=== PATIENT | male | born 1975 | race Caucasian/White ===

== ENCOUNTER 2016-09-13 17:26 | Observation (INO) | payer SELFPAY ==
[~2016-09-13] VITALS: Ht 182.9 cm; Wt 108.4 kg
[~2016-09-13 17:26] MED LIST: BENZ100 PO; PRED20 PO
[2016-09-13 17:29] VITALS: BP 120/90; PULSE 108; RESP 16; TEMP 99.2; O2SAT 97
[2016-09-13] MEDS ORDERED: SODIUM CHLOR 0.9% 1000 ML INJ 1,000 ML IV ONE (20:15)
[2016-09-13] MEDS ORDERED: ONDANSETRON HCL 4 MG/2 ML VIAL IV PUSH ONE (20:15)
[2016-09-13] MEDS ORDERED: MORPHINE SULFATE 4 MG/ML INJ IV PUSH ONE (20:15)
[2016-09-13] MEDS ORDERED: SODIUM CHLORIDE 0.9% FLUSH 5 ML FLUSH IVF PRN ×2 (20:15→22:00)
--- NOTE | 2016-09-13 20:16 | PD ---
HPI Chief Complaint: Musculoskeletal Complaint Time Seen by Provider: 20:12 Travel History International Travel<30 days: No Contact w/Intl Traveler<30days: No Traveled to known affect area: No History of Present Illness HPI Patient comes in complaining of headache is occipital lobe ongoing for approximately 3 days. Patient states he woke with a headache. He states progressively has got worse and is radiating into his neck. There is pain is throbbing like in nature is worse with turning his head to the right. Patient has been using Tylenol with minimal to no relief of his symptoms. Denies any seizures, nausea, vomiting, headache history, chest pain, shortness breath, numbness or tingling anywhere, loss or change in bladder, or known sick contacts. Patient states he is primary concern is his sister from an aneurysm at age 41. [facility] Past Medical History Musculoskeletal: Yes (Spinal stenosis, dropfoot) Tetanus Vaccination: > 5 Years Influenza Vaccination: No Social History Alcohol Use: Yes (Occ.) Tobacco Use: Yes (1 PPD) Substance Use: No Allergies-Medications (Allergen,Severity, Reaction): Coded Allergies: No Known Allergies (Unverified , 09/13/16) Reported Meds & Prescriptions Reported Meds & Active Scripts Active No Active Prescriptions or Reported Medications Review of Systems Except as stated in HPI: all other systems reviewed are Neg Physical Exam Narrative GENERAL: Well-developed, well nourished, in no acute distress, and non-ill appearing. SKIN: Warm and dry. HEAD: Atraumatic. Normocephalic. EYES: Pupils equal and round. EOMI. No scleral icterus. No injection or drainage. ENT: No nasal bleeding or discharge. Mucous membranes pink and moist. NECK: Trachea midline. No cervical lymphadenopathy. Supple. No nuclear rigidity. No tenderness or crepitus to midline of the cervical Spine. Patient Reports Tenderness to the Paravertebral Spinal Muscles on the Right. CARDIOVASCULAR: Regular rate and rhythm. No murmur appreciated. RESPIRATORY: No accessory muscle use. No respiratory distress. Clear to auscultation. Breath sounds equal bilaterally. MUSCULOSKELETAL: No obvious deformities. No clubbing. No cyanosis. No edema. Full range of motion. NEUROLOGICAL: Awake and alert. No obvious cranial nerve deficits. Motor grossly within normal limits. Normal speech. PSYCHIATRIC: Appropriate mood and affect; insight and judgment normal. Data Data Last Documented VS Vital Signs Date Time Temp Pulse Resp B/P Pulse Ox O2 Delivery O2 Flow Rate FiO2 09/13/16 21:16 65 18 113/68 100 Room Air 09/13/16 17:29 99.2 Orders Complete Blood Count With Diff (09/13/16 20:09) Basic Metabolic Panel (Bmp) (09/13/16 20:09) Prothrombin Time / Inr (Pt) (09/13/16 20:09) Act Partial Throm Time (Ptt) (09/13/16 20:09) Ct Brain W/O Iv Contrast(Rout) (09/13/16 20:09) Ecg Monitoring (09/13/16 20:09) Iv Access Insert/Monitor (09/13/16 20:09) Oximetry (09/13/16 20:09) Sodium Chloride 0.9% Flush (Ns Flush) (09/13/16 20:15) Cta Brain W Iv Contrast W 3d (09/13/16 ) Morphine Inj (Morphine Inj) (09/13/16 20:15) Ondansetron Inj (Zofran Inj) (09/13/16 20:15) Sodium Chlor 0.9% 1000 Ml Inj (Ns 1000 M (09/13/16 20:15) Iohexol 350 Inj (Omnipaque 350 Inj) (09/13/16 20:55) Labs Laboratory Tests Test 09/13/16 20:15 White Blood Count 9.1 TH/MM3 Red Blood Count 4.95 MIL/MM3 Hemoglobin 15.9 GM/DL Hematocrit 45.9 % Mean Corpuscular Volume 92.8 FL Mean Corpuscular Hemoglobin 32.2 PG Mean Corpuscular Hemoglobin 34.7 % Concent Red Cell Distribution Width 12.0 % Platelet Count 219 TH/MM3 Mean Platelet Volume 8.6 FL Neutrophils (%) (Auto) 62.8 % Lymphocytes (%) (Auto) 29.3 % Monocytes (%) (Auto) 5.1 % Eosinophils (%) (Auto) 2.0 % Basophils (%) (Auto) 0.8 % Neutrophils # (Auto) 5.6 TH/MM3 Lymphocytes # (Auto) 2.7 TH/MM3 Monocytes # (Auto) 0.5 TH/MM3 Eosinophils # (Auto) 0.2 TH/MM3 Basophils # (Auto) 0.1 TH/MM3 CBC Comment DIFF FINAL Differential Comment Prothrombin Time 10.9 SEC Prothromb Time International 1.0 RATIO Ratio Activated Partial 28.0 SEC Thromboplast Time Sodium Level 140 MEQ/L Potassium Level 4.3 MEQ/L Chloride Level 107 MEQ/L Carbon Dioxide Level 26.6 MEQ/L Anion Gap 6 MEQ/L Blood Urea Nitrogen 13 MG/DL Creatinine 0.93 MG/DL Estimat Glomerular Filtration 90 ML/MIN Rate Random Glucose 94 MG/DL Calcium Level 8.3 MG/DL MDM Medical Decision Making Medical Screen Exam Complete: Yes Emergency Medical Condition: Yes Differential Diagnosis Aneurysm, meningitis, torticollis, headache, other Narrative Course Patient was seen and examined. Initial laboratory and radiological studies were ordered. Patient was signed out to Dr. Balbuena. Please see his documentation for final diagnosis and disposition. Scripts No Active Prescriptions or Reported Meds Michael Raya Sep 13, 2016 20:16
--- NOTE | 2016-09-13 20:27 | PD ---
Data Data Last Documented VS Vital Signs Date Time Temp Pulse Resp B/P Pulse Ox O2 Delivery O2 Flow Rate FiO2 09/13/16 22:29 78 18 117/76 100 Room Air 09/13/16 17:29 99.2 Orders Complete Blood Count With Diff (09/13/16 20:09) Basic Metabolic Panel (Bmp) (09/13/16 20:09) Prothrombin Time / Inr (Pt) (09/13/16 20:09) Act Partial Throm Time (Ptt) (09/13/16 20:09) Ct Brain W/O Iv Contrast(Rout) (09/13/16 20:09) Ecg Monitoring (09/13/16 20:09) Iv Access Insert/Monitor (09/13/16 20:09) Oximetry (09/13/16 20:09) Sodium Chloride 0.9% Flush (Ns Flush) (09/13/16 20:15) Cta Brain W Iv Contrast W 3d (09/13/16 ) Morphine Inj (Morphine Inj) (09/13/16 20:15) Ondansetron Inj (Zofran Inj) (09/13/16 20:15) Sodium Chlor 0.9% 1000 Ml Inj (Ns 1000 M (09/13/16 20:15) Iohexol 350 Inj (Omnipaque 350 Inj) (09/13/16 20:55) Csf Cell Count + Differential (09/13/16 22:00) Glucose, Csf (09/13/16 22:00) Total Protein, Csf (09/13/16 22:00) Csf Culture And Gram Stain (09/13/16 22:00) Sodium Chloride 0.9% Flush (Ns Flush) (09/13/16 22:00) Csf Cell Count + Differential (09/13/16 22:01) Admit Order (Ed Use Only) (09/13/16 ) Labs Laboratory Tests Test 09/13/16 09/13/16 20:15 21:58 White Blood Count 9.1 TH/MM3 Red Blood Count 4.95 MIL/MM3 Hemoglobin 15.9 GM/DL Hematocrit 45.9 % Mean Corpuscular Volume 92.8 FL Mean Corpuscular Hemoglobin 32.2 PG Mean Corpuscular Hemoglobin 34.7 % Concent Red Cell Distribution Width 12.0 % Platelet Count 219 TH/MM3 Mean Platelet Volume 8.6 FL Neutrophils (%) (Auto) 62.8 % Lymphocytes (%) (Auto) 29.3 % Monocytes (%) (Auto) 5.1 % Eosinophils (%) (Auto) 2.0 % Basophils (%) (Auto) 0.8 % Neutrophils # (Auto) 5.6 TH/MM3 Lymphocytes # (Auto) 2.7 TH/MM3 Monocytes # (Auto) 0.5 TH/MM3 Eosinophils # (Auto) 0.2 TH/MM3 Basophils # (Auto) 0.1 TH/MM3 CBC Comment DIFF FINAL Differential Comment Prothrombin Time 10.9 SEC Prothromb Time International 1.0 RATIO Ratio Activated Partial 28.0 SEC Thromboplast Time Sodium Level 140 MEQ/L Potassium Level 4.3 MEQ/L Chloride Level 107 MEQ/L Carbon Dioxide Level 26.6 MEQ/L Anion Gap 6 MEQ/L Blood Urea Nitrogen 13 MG/DL Creatinine 0.93 MG/DL Estimat Glomerular Filtration 90 ML/MIN Rate Random Glucose 94 MG/DL Calcium Level 8.3 MG/DL CSF Volume (Tube 1) 1.0 ML CSF Supernatant Color (tube 1) CLEAR CSF Gross Blood (Tube 1) 3+ CSF WBC (Tube 1) 0 /MM3 CSF RBC (Tube 1) 64588 /MM3 CSF Volume (Tube 2) 1.0 ML CSF Supernatant Color (tube 2) CLEAR CSF Gross Blood (Tube 2) 3+ CSF Volume (Tube 3) 1.0 ML CSF Supernatant Color (tube 3) CLEAR CSF Gross Blood (Tube 3) 3+ CSF Volume (Tube 4) 1.0 ML CSF Supernatant Color (tube 4) CLEAR CSF Gross Blood (Tube 4) 0 CSF WBC (Tube 4) 0 /MM3 CSF RBC (Tube 4) 27700 /MM3 CSF Neutrophils 0 % CSF Lymphocytes 0 % [facility] Supervised Visit with GEE: Yes Narrative Course Patient care assumed from Karthik Alfred [facility] at 2100. Briefly this is a 41-year-old male with presents emergency Department with 3 days with headache. Patient apparently awoke with a headache. Patient is concerned because his sister of a ruptured aneurysm in her head at 39 years of age. Patient denies any thunderclap presentation. He states his headache is mostly occipital. Denies any visual changes. Neuro exam on this patient is: Cranial nerves II through XII are grossly intact and nonfocal, 5 out of 5 strength in all 4 extremities, cerebellar testing is negative, sensation is intact in all 4 extremities. Funduscopy is negative. Discussed the length of the patient CT head and CT angiogram head are negative, still not adequate to exclude possibility for subarachnoid hemorrhage and somebody with his family history. After discussing the risks benefits competitions and alternatives of lumbar puncture he agrees to the test. This test reveals grossly bloody CSF in a fairly atraumatic tap is negative for xanthochromia but the RBCs in the CSF sample increased from tube 1 to tube 4.. Patient was discussed with Dr. Kc and patient will be admitted to the SICU at the [facility] for consideration of angiography in the morning. Patient's headache was completely relieved with morphine. He is stable for transportation. Procedures Procedure Narrative LUMBAR PUNCTURE: The patient was placed in the seated position. The lumbar area of the back was prepped with Betadine and sterilely draped. The L3 -- L4 interspace was infiltrated with 1% lidocaine plain. Number 20 gauge LP needle was placed in the interspace on the first attempt.. Opening pressure deferred. Number 4 milliliters of blood-tinged CSF were obtained. Patient tolerated procedure well. Diagnosis Primary Impression: High cerebrospinal fluid red blood cell count Additional Impression: Headache Qualified Code: R51 - Nonintractable headache, unspecified chronicity pattern , unspecified headache type Admitting Information Admitting Physician Requests: Admit Scripts No Active Prescriptions or Reported Meds Condition: Stable Eduar Balbuena MD Sep 13, 2016 20:27
[2016-09-13 20:28] LABS: AUTOMATED NEUTROPHIL # 5.6 TH/MM3 (1.8-7.7); BASOPHIL # 0.1 TH/MM3 (0-0.2); BASOPHIL % 0.8 % (0.0-2.0); EOSINOPHIL # 0.2 TH/MM3 (0-0.4); HEMATOCRIT 45.9 % (39.0-51.0); HEMO FLAGS DIFF FINAL; LYMPH % 29.3 % (9.0-44.0); LYMPHOCYTE # 2.7 TH/MM3 (1.0-4.8); MEAN CELL VOLUME 92.8 FL (80.0-100.0); MEAN CORPUSCULAR HEMOGLOBIN 32.2 PG (27.0-34.0); MEAN CORPUSCULAR HGB CONC 34.7 % (32.0-36.0); MONO % 5.1 % (0.0-8.0); NEUT % 62.8 % (16.0-70.0); PLATELET COUNT 219 TH/MM3 (150-450); RED BLOOD COUNT 4.95 MIL/MM3 (4.50-5.90); WHITE BLOOD COUNT 9.1 TH/MM3 (4.0-11.0)
[2016-09-13 20:33] VITALS: BP 108/71; PULSE 77; RESP 20; O2SAT 97
[2016-09-13 20:38] LABS: POTASSIUM 4.3 MEQ/L (3.5-5.1)
[2016-09-13 20:41] LABS: BICARBONATE 26.6 MEQ/L (21.0-32.0)
[2016-09-13 20:44] LABS: PROTHROMBIN TIME - PATIENT 10.9 SEC (9.8-11.6)
[2016-09-13] MEDS ORDERED: IOHEXOL 350 MG/ML 10 ML VIAL (for RAD DIAG) IV ONE (20:55)
--- NOTE | 2016-09-13 21:11 | RADHPO ---
EXAM DATE/TIME: 09/13/2016 20:50 [facility] COMPARISON: No previous studies available for comparison. INDICATIONS : Cephalgia for three days. RADIATION DOSE: 60.17 CTDIvol (mGy) MEDICAL HISTORY : None SURGICAL HISTORY : None. ENCOUNTER: Initial ACUITY: 3 days PAIN SCALE: 6/10 LOCATION: Bilateral cranial TECHNIQUE: Multiple contiguous axial images were obtained of the head. Using automated exposure control and adj ustment of the mA and/or kV according to patient size, radiation dose was kept as low as reasonably a chievable to obtain optimal diagnostic quality images. FINDINGS: CEREBRUM: The ventricles are normal for age. No evidence of midline shift, mass lesion, hemorrhage or acute in farction. No extra-axial fluid collections are seen. POSTERIOR FOSSA: The cerebellum and brainstem are intact. The 4th ventricle is midline. The cerebellopontine angle i s unremarkable. EXTRACRANIAL: The visualized portion of the orbits is intact. SKULL: The calvaria is intact. No evidence of skull fracture. CONCLUSION: Normal examination. Ken Levy MD on September 13, 2016 at 21:09 Board Certified Radiologist. This report was verified electronically.
[2016-09-13 21:16] VITALS: BP 113/68; PULSE 65; RESP 18; O2SAT 100
--- NOTE | 2016-09-13 21:34 | RADHPO ---
EXAM DATE/TIME: 09/13/2016 20:50 This report includes an Addendum and supersedes previous reports for this exam. [facility] COMPARISON: No previous studies available for comparison. INDICATIONS : Cephalgia for three days. IV CONTRAST: 75 cc Omnipaque 350 (iohexol) IV RADIATION DOSE: 42.62 CTDIvol (mGy) MEDICAL HISTORY : None SURGICAL HISTORY : None. ENCOUNTER: Initial ACUITY: 1 day PAIN SCALE: 6/10 LOCATION: cranial TECHNIQUE: Volumetric scanning was performed using a multi-row detector CT scanner. The data was post processed with a variety of visualization algorithms including full volume maximum intensity projection, multi -planar sliding thin slab reformation, curved planar reformation, and surface rendering techniques. Using automated exposure control and adjustment of the mA and/or kV according to patient size, radiat ion dose was kept as low as reasonably achievable to obtain optimal diagnostic quality images. FINDINGS: There is excellent visualization of the major intracranial arteries out to the second-order branch ve ssels. There is no evidence for aneurysm, vessel truncation or stenosis, and no evidence for vascula r malformation. CONCLUSION: Normal examination. Ken Levy MD on September 13, 2016 at 21:28 Board Certified Radiologist. This report was verified electronically. ADDENDUM: The case was reviewed for Dr. Kc. The examination demonstrates a 4 mm aneurysm projecting laterally off the supraclinoid carotid on the right likely arising from the posterior communicating on the rig ht. This is obscured by the skull base and is quite difficult to visualize on the source data. Conven tional cerebral angiogram is pending. Bryan De La Torre MD on September 14, 2016 at 7:59 Board Certified Radiologist. This report was verified electronically.
[2016-09-13 22:29] VITALS: BP 117/76; PULSE 78; RESP 18; O2SAT 100
[2016-09-13 22:47] LABS: GROSS BLOOD TUBE #1 3+ (0); GROSS BLOOD TUBE #2 3+ (0); GROSS BLOOD TUBE #3 3+ (0); GROSS BLOOD TUBE #4 3+ (0); SUPERNATE COLOR TUBE #1 CLEAR (CLEAR); SUPERNATE COLOR TUBE #2 CLEAR (CLEAR); SUPERNATE COLOR TUBE #3 CLEAR (CLEAR); SUPERNATE COLOR TUBE #4 CLEAR (CLEAR); WBC TUBE #4 0 /MM3 (0-10)
[2016-09-13 22:48] LABS: CSF LYMPHOCYTES 0 %; CSF NEUTROPHILS 0 %
[2016-09-13 22:49] LABS: CSF LYMPHOCYTES 0 %; CSF NEUTROPHILS 0 %; GROSS BLOOD TUBE #1 3+ (0); GROSS BLOOD TUBE #2 3+ (0); GROSS BLOOD TUBE #3 3+ (0); GROSS BLOOD TUBE #4 0 (0); SUPERNATE COLOR TUBE #1 CLEAR (CLEAR); SUPERNATE COLOR TUBE #2 CLEAR (CLEAR); SUPERNATE COLOR TUBE #3 CLEAR (CLEAR); SUPERNATE COLOR TUBE #4 CLEAR (CLEAR); WBC TUBE #1 0 /MM3 (0-10)
[2016-09-14] VITALS (14 sets, daily range): BP systolic 108–135; BP diastolic 65–88; PULSE 60–87; RESP 11–23; TEMP 97.5–98.9; O2SAT 92–99
--- NOTE | 2016-09-14 00:11 | HHI.HP ---
HPI Primary Care Physician No Primary Care Physician Past Family Social History Allergies: Coded Allergies: No Known Allergies (Unverified , 09/13/16) Physical Exam Vital Signs Vital Signs Date Time Temp Pulse Resp B/P Pulse Ox O2 Delivery O2 Flow Rate FiO2 09/13/16 22:29 78 18 117/76 100 Room Air 09/13/16 21:16 65 18 113/68 100 Room Air 09/13/16 20:33 77 20 108/71 97 09/13/16 20:33 97 09/13/16 17:29 99.2 108 16 120/90 97 Laboratory Laboratory Tests Test 09/13/16 09/13/16 20:15 21:58 White Blood Count 9.1 Red Blood Count 4.95 Hemoglobin 15.9 Hematocrit 45.9 Mean Corpuscular Volume 92.8 Mean Corpuscular Hemoglobin 32.2 Mean Corpuscular Hemoglobin 34.7 Concent Red Cell Distribution Width 12.0 Platelet Count 219 Mean Platelet Volume 8.6 Neutrophils (%) (Auto) 62.8 Lymphocytes (%) (Auto) 29.3 Monocytes (%) (Auto) 5.1 Eosinophils (%) (Auto) 2.0 Basophils (%) (Auto) 0.8 Neutrophils # (Auto) 5.6 Lymphocytes # (Auto) 2.7 Monocytes # (Auto) 0.5 Eosinophils # (Auto) 0.2 Basophils # (Auto) 0.1 CBC Comment DIFF FINAL Differential Comment Prothrombin Time 10.9 Prothromb Time International 1.0 Ratio Activated Partial 28.0 Thromboplast Time Sodium Level 140 Potassium Level 4.3 Chloride Level 107 Carbon Dioxide Level 26.6 Anion Gap 6 Blood Urea Nitrogen 13 Creatinine 0.93 Estimat Glomerular Filtration 90 Rate Random Glucose 94 Calcium Level 8.3 CSF Volume (Tube 1) 1.0 CSF Supernatant Color (tube 1) CLEAR CSF Gross Blood (Tube 1) 3+ CSF WBC (Tube 1) 0 CSF RBC (Tube 1) 75305 CSF Volume (Tube 2) 1.0 CSF Supernatant Color (tube 2) CLEAR CSF Gross Blood (Tube 2) 3+ CSF Volume (Tube 3) 1.0 CSF Supernatant Color (tube 3) CLEAR CSF Gross Blood (Tube 3) 3+ CSF Volume (Tube 4) 1.0 CSF Supernatant Color (tube 4) CLEAR CSF Gross Blood (Tube 4) 0 CSF WBC (Tube 4) 0 CSF RBC (Tube 4) 08654 CSF Neutrophils 0 CSF Lymphocytes 0 Date/Time Procedure Status Source Growth 09/13/16 21:58 Gram Stain - Final Resulted Cerebral Spinal Fluid Lumbar Puncture 09/13/16 21:58 CSF Culture Resulted Cerebral Spinal Fluid Lumbar Puncture Pending Result Diagram: 09/13/16201409/13/162014 Imaging Last Impressions Head CT 09/13/162008 Signed Impressions: Service Date/Time: Tuesday, September 13, 2016 20:50 - CONCLUSION: Normal examination. Ken Levy MD Head CTA 09/13/16 0000 Signed Impressions: Service Date/Time: Tuesday, September 13, 2016 20:50 - CONCLUSION: Normal examination. Ken Levy MD Assessment and Plan Assessment and Plan Headache Probable traumatic LP Plan; D/w pt per ED. Family history of aneurysm. Patient wants angiogram Mark Kc MD Sep 14, 2016 00:11
[2016-09-14] MEDS ORDERED: ONDANSETRON HCL 4 MG/2 ML VIAL IV PRN (00:15)
[2016-09-14] MEDS ORDERED: HYDROmorphone HCL PF 1 MG/ML VIAL IV PRN ×2 (00:15)
[2016-09-14] MEDS ORDERED: PROMETHAZINE INJ 25 MG/ML VIAL IM PRN (00:15)
[2016-09-14] MEDS ORDERED: ACETAMINOPHEN/HYDROcodone 325 MG/5 MG TAB PO PRN (00:15)
[2016-09-14] MEDS ORDERED: NALOXONE HCL 0.4 MG/ML AMP IV PRN (00:15)
[2016-09-14] MEDS: ACETAMINOPHEN/HYDROcodone 325 MG/10 MG TAB PO PRN ×4 (02:18→21:19)
[2016-09-14] MEDS: niMODipine 30 MG CAP PO SCH ×5 (04:30→21:19)
[2016-09-14] MEDS: DOCUSATE SODIUM 100 MG CAP PO SCH ×2 (08:11→21:20)
--- NOTE | 2016-09-14 08:54 | PD.RAD ---
Radiology Note 41 Y/O with 4 day history of headache and family history of aneurism. Pt underwent CTA for assessment but initial report was negative for aneurism. Due to strong family history and presentation the study was reevaluated. Exam demonstrates a 4mm aneurism likely arising from the right PCOM which was partially obscured by the skull base. The risk, benefits and potential complications of cerebral angiography and aneurism coiling were discussed. The risk included but were not limited to bleeding, infection, stroke resulting in permanent disability and rarely . The patient voiced his understanding of the risk and stated he was well aware as his sister passed from a ruptured aneurism at 39. Bryan De La Torre MD Sep 14, 2016 08:53
[2016-09-14] MEDS ORDERED: PANTOPRAZOLE SOD 40 MG DELAYED RELEASE TAB PO SCH (09:00)
--- NOTE | 2016-09-14 10:59 | HHI.HP ---
[facility] Service Neurosurgery Primary Care Physician No Primary Care Physician Chief Complaint: Headache 3-4 days History of Present Illness 41-year-old male states that he awoke 4 days ago in the morning with a severe headache accompanied by nausea without emesis. The headache has persisted up to the present time. He has no history of previous significant headaches. No fevers or chills. No diplopia, blurred vision, tinnitus numbness in the extremities. Patient has exhibited some mild memory loss according to his family. Patient does have a history of a sister at age 39 years due to a cerebral aneurysm. Review of Systems General: No weight gain or loss or change in appetite. No recent fever, chills or sweats. No generalized fatigue. HEENT: No sore throat. No sinus congestion or drainage. No chronic headaches. Recent headache as noted above. No hearing loss or tinnitus, blurred vision, diplopia, facial pain, weakness or numbness, or difficulty swallowing. Cardiovascular: No chest pain, palpations Pulmonary: No shortness of breath or productive cough. Gastrointestinal: No abdominal discomfort,, diarrhea, constipation. No gastroesophageal reflux. No problems with jaundice, ulcers. Recent nausea. : No blood in the urine. No dysuria. No urinary urgency or incontinence. Integumentary: No skin lesions or rash. Neurologic: Mild recent memory loss. No speech difficulty, difficulty with concentration, confusion. No difficulty with ambulation. No weakness or numbness in the extremities. Psychiatric: No anxiety or depression. Endocrine: No excessive thirst or urination, heat or cold tolerance. Hematologic: No significant bleeding or clotting disorder. No chronic anemia. Musculoskeletal: No complaint of significant joint pain, arthritis, muscular pain. Past Family Social History Allergies: Coded Allergies: No Known Allergies (Unverified , 09/13/16) Past Medical History Denies cardiac, pulmonary, gastrointestinal disease, diabetes, hypertension. History of spinal stenosis. Chronic right drop foot for approximately 3-4 years. History of hydrocele Past Surgical History Right shoulder surgery 1996 Reported Medications Reported Meds & Active Scripts Active No Active Prescriptions or Reported Medications Family History Hypertension and diabetes in multiple family members including his mother and grandmother. Sisiter . at age 41 due to ruptured intracranial aneurysm. Social History Has smoked 1 pack cigarettes a day for approximately 23 years. No alcohol or illicit drug use Physical Exam Vital Signs Vital Signs Date Time Temp Pulse Resp B/P Pulse Ox O2 Delivery O2 Flow Rate FiO2 09/14/16 06:00 62 09/14/16 04:00 60 09/14/16 04:00 60 11 119/72 96 09/14/16 03:00 66 17 118/76 92 09/14/16 02:00 96 Room Air 09/14/16 02:00 74 09/14/16 02:00 97.9 74 14 133/88 96 09/14/16 01:04 78 18 118/76 99 09/13/16 22:29 78 18 117/76 100 Room Air 09/13/16 21:16 65 18 113/68 100 Room Air 09/13/16 20:33 77 20 108/71 97 09/13/16 20:33 97 09/13/16 17:29 99.2 108 16 120/90 97 Physical Exam GENERAL: This is a well-nourished, well-developed patient, in no apparent distress. SKIN: No rashes, ecchymoses or lesions. HEAD: Normocephalic, nontender EYES: Sclerae are clear and nonicteric. No periorbital edema or ecchymosis ENT: Oropharynx clear. No periorbital edema or ecchymosis. Intact dentition NECK: Supple, nontender, no meningeal signs. CARDIOVASCULAR: Regular rate and rhythm without murmurs, gallops, or rubs. RESPIRATORY: Clear to auscultation. Breath sounds equal bilaterally. No wheezes , rales, or rhonchi. GASTROINTESTINAL: Abdomen soft, non-tender, nondistended. No hepato-splenomegaly , or palpable masses. No guarding. Normal bowel sounds MUSCULOSKELETAL: Extremities without cyanosis, or edema. No joint tenderness, effusion, or edema noted. No calf tenderness. Posterior tibial pulse 2+ bilateral NEUROLOGICAL: Awake and alert Oriented X 3 Speech is clear Conversant and appropriate Follow simple commands well Answers questions appropriately Reasonable judgment and insight Recent and remote memory are intact No evidence of anxiety or depression Pupils are equal and reactive to accommodation. Extra-ocular movements, visual alcaraz to confrontation, facial sensorimotor, tongue, palate, sternocleidomastoid testing, hearing to finger rub testing, and bilateral shoulder shrug are all intact. Sensation is intact to light touch in all extremities Strength normal major flexion and extension groups all extremities Fernanda's absent bilaterally No ankle clonus Plantar responses absent bilateral Fine motor movements intact upper extremities Laboratory Laboratory Tests Test 09/13/16 09/13/16 20:15 21:58 White Blood Count 9.1 Red Blood Count 4.95 Hemoglobin 15.9 Hematocrit 45.9 Mean Corpuscular Volume 92.8 Mean Corpuscular Hemoglobin 32.2 Mean Corpuscular Hemoglobin 34.7 Concent Red Cell Distribution Width 12.0 Platelet Count 219 Mean Platelet Volume 8.6 Neutrophils (%) (Auto) 62.8 Lymphocytes (%) (Auto) 29.3 Monocytes (%) (Auto) 5.1 Eosinophils (%) (Auto) 2.0 Basophils (%) (Auto) 0.8 Neutrophils # (Auto) 5.6 Lymphocytes # (Auto) 2.7 Monocytes # (Auto) 0.5 Eosinophils # (Auto) 0.2 Basophils # (Auto) 0.1 CBC Comment DIFF FINAL Differential Comment Prothrombin Time 10.9 Prothromb Time International 1.0 Ratio Activated Partial 28.0 Thromboplast Time Sodium Level 140 Potassium Level 4.3 Chloride Level 107 Carbon Dioxide Level 26.6 Anion Gap 6 Blood Urea Nitrogen 13 Creatinine 0.93 Estimat Glomerular Filtration 90 Rate Random Glucose 94 Calcium Level 8.3 CSF Volume (Tube 1) 1.0 CSF Supernatant Color (tube 1) CLEAR CSF Gross Blood (Tube 1) 3+ CSF WBC (Tube 1) 0 CSF RBC (Tube 1) 88178 CSF Volume (Tube 2) 1.0 CSF Supernatant Color (tube 2) CLEAR CSF Gross Blood (Tube 2) 3+ CSF Volume (Tube 3) 1.0 CSF Supernatant Color (tube 3) CLEAR CSF Gross Blood (Tube 3) 3+ CSF Volume (Tube 4) 1.0 CSF Supernatant Color (tube 4) CLEAR CSF Gross Blood (Tube 4) 0 CSF WBC (Tube 4) 0 CSF RBC (Tube 4) 78068 CSF Neutrophils 0 CSF Lymphocytes 0 CSF Glucose 57 CSF Total Protein 58.2 Date/Time Procedure Status Source Growth 09/13/16 21:58 Gram Stain - Final Resulted Cerebral Spinal Fluid Lumbar Puncture 09/13/16 21:58 CSF Culture - Preliminary Resulted Cerebral Spinal Fluid Lumbar Puncture NO GROWTH IN 24 HOURS. Result Diagram: 09/13/16201409/13/162014 Imaging 09/13/[address] head [address] CT angiogram. Images reviewed by the undersigned. Agree with findings as noted below: Head CT 09/13/162008 Signed Impressions: Service Date/Time: Tuesday, September 13, 2016 20:50 - CONCLUSION: Normal examination. Ken Levy MD Head CTA 09/13/16 0000 Signed Impressions: MD ADDENDUM: The case was reviewed for Dr. Kc. The examination demonstrates a 4 mm aneurysm projecting laterally off the supraclinoid carotid on the right likely arising from the posterior communicating on the right. This is obscured by the skull base and is quite difficult to visualize on the source data. Conventional cerebral angiogram is pending. Bryan De La Torre MD Assessment and Plan Assessment and Plan Impression: 1. 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 Plan: Findings discussed with interventional radiology as well as with the patient and family. He is going to proceed with conventional cerebral angiogram with possible coiling of the aneurysm. The procedure, risks, possible complications as well as other treatment options and then fully discussed. He appears understand and agree with the above plan Nimodipine Non-chemical DVT prophylaxis Ulcer prophylaxis [employer] consult Mark Kc MD Sep 14, 2016 10:59
--- NOTE | 2016-09-14 11:45 | PD.CONS ---
[facility] Service Critical Care Medicine Consult Requested By Dr. Kc Reason for Consult Cerebral aneurysm Primary Care Physician No Primary Care Physician History of Present Illness 41 y/o man originally from [place], [place], now living in [place], presents to ED with 4 day history of a constant posterior headache which wanes but never stops. He dies not have headaches usually. His sister of a brain aneurysm at age 39. He denies any focal defects but his sister thinks he has developed memory problems recently. No chest pain or SOB. No hx of hypertension. + smoker. 15,800 rbcs in CSF, no wbcs. 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 Review of Systems Neurologic: COMPLAINS OF: Headache ROS No nausea, vomiting, fevers. Past Family Social History Allergies: Coded Allergies: No Known Allergies (Unverified , 09/13/16) Past Medical History PFSH Past Medical History Musculoskeletal: Yes (Spinal stenosis, dropfoot) Tetanus Vaccination: > 5 Years Influenza Vaccination: No Social History Alcohol Use: Yes (Occ.) Tobacco Use: Yes (1 PPD) Substance Use: No Allergies-Medications Allergies-Medications (Allergen,Severity, Reaction): Coded Allergies: No Known Allergies (Unverified , 09/13/16) Reported Meds & Prescriptions Reported Meds & Active Scripts Active No Active Prescriptions or Reported Medications Physical Exam Vital Signs Vital Signs Date Time Temp Pulse Resp B/P Pulse Ox O2 Delivery O2 Flow Rate FiO2 09/14/16 08:00 97.9 76 23 119/69 98 09/14/16 07:00 98 Room Air 09/14/16 06:00 62 09/14/16 04:00 60 09/14/16 04:00 60 11 119/72 96 09/14/16 03:00 66 17 118/76 92 09/14/16 02:00 96 Room Air 09/14/16 02:00 74 09/14/16 02:00 97.9 74 14 133/88 96 09/14/16 01:04 78 18 118/76 99 09/13/16 22:29 78 18 117/76 100 Room Air 09/13/16 21:16 65 18 113/68 100 Room Air 09/13/16 20:33 77 20 108/71 97 09/13/16 20:33 97 09/13/16 17:29 99.2 108 16 120/90 97 Physical Exam P 79, BP 111/68, R 14 non-labored, afeb, sats 100% Gen: Alert, conversant, calm. Head: Atraumatic. Normal. Neck: Suple, airway widely patent. Lungs: Clear, no wheezes or crackles. Heart: NL S1S2, no m,r. No JVD. Abdomen: Soft, nondistended, no guarding. Extremities; Warm, well perfused. Neuro: O X 3, appropriate. Pupil response, EOMs, shoulder shrug, tongue protrusion, smile, grimace intact and symmetrical. Speech clear. Moves 4 limbs to command with grossly normal strength. Laboratory Laboratory Tests Test 09/13/16 09/13/16 20:15 21:58 White Blood Count 9.1 Red Blood Count 4.95 Hemoglobin 15.9 Hematocrit 45.9 Mean Corpuscular Volume 92.8 Mean Corpuscular Hemoglobin 32.2 Mean Corpuscular Hemoglobin 34.7 Concent Red Cell Distribution Width 12.0 Platelet Count 219 Mean Platelet Volume 8.6 Neutrophils (%) (Auto) 62.8 Lymphocytes (%) (Auto) 29.3 Monocytes (%) (Auto) 5.1 Eosinophils (%) (Auto) 2.0 Basophils (%) (Auto) 0.8 Neutrophils # (Auto) 5.6 Lymphocytes # (Auto) 2.7 Monocytes # (Auto) 0.5 Eosinophils # (Auto) 0.2 Basophils # (Auto) 0.1 CBC Comment DIFF FINAL Differential Comment Prothrombin Time 10.9 Prothromb Time International 1.0 Ratio Activated Partial 28.0 Thromboplast Time Sodium Level 140 Potassium Level 4.3 Chloride Level 107 Carbon Dioxide Level 26.6 Anion Gap 6 Blood Urea Nitrogen 13 Creatinine 0.93 Estimat Glomerular Filtration 90 Rate Random Glucose 94 Calcium Level 8.3 CSF Volume (Tube 1) 1.0 CSF Supernatant Color (tube 1) CLEAR CSF Gross Blood (Tube 1) 3+ CSF WBC (Tube 1) 0 CSF RBC (Tube 1) 85632 CSF Volume (Tube 2) 1.0 CSF Supernatant Color (tube 2) CLEAR CSF Gross Blood (Tube 2) 3+ CSF Volume (Tube 3) 1.0 CSF Supernatant Color (tube 3) CLEAR CSF Gross Blood (Tube 3) 3+ CSF Volume (Tube 4) 1.0 CSF Supernatant Color (tube 4) CLEAR CSF Gross Blood (Tube 4) 0 CSF WBC (Tube 4) 0 CSF RBC (Tube 4) 82605 CSF Neutrophils 0 CSF Lymphocytes 0 CSF Glucose 57 CSF Total Protein 58.2 Date/Time Procedure Status Source Growth 09/13/16 21:58 Gram Stain - Final Resulted Cerebral Spinal Fluid Lumbar Puncture 09/13/16 21:58 CSF Culture - Preliminary Resulted Cerebral Spinal Fluid Lumbar Puncture NO GROWTH IN 24 HOURS. Result Diagram: 09/13/16201409/13/162014 Assessment and Plan Problem List: (1) Cerebral aneurysm ICD Code: I67.1 Status: Acute (2) Headache ICD Code: R51 Status: Acute (3) High cerebrospinal fluid red blood cell count ICD Code: R83.8 Status: Acute Assessment and Plan Assessment: 1. PCOM aneurysm (4 mm) 2. Headache. 3. Elevated SCF rbc count (15,800) Plan: 1. Formal cerebral arteriogram has been scheduled. 2. Probable coiling. 3. Meticulous BP control. 4. Protonix. 5. No chemical DVT px. 6.SCDs. Problem Qualifiers (1) Headache: Qualified Code: R51 - Nonintractable headache, unspecified chronicity pattern, unspecified headache type Grabiel Jones MD Sep 14, 2016 11:45
[2016-09-14] MEDS ORDERED: fentaNYL CITRATE 250 MCG/5 ML AMP ONE ×2 (12:13→13:39)
[2016-09-14] MEDS ORDERED: VERAPAMIL HCL 5 MG/2 ML VIAL ONE (12:25)
[2016-09-14] MEDS ORDERED: MIDAZOLAM HCL 5 MG/5 ML VIAL ONE (14:07)
[2016-09-14] MEDS ORDERED: IODIXANOL 320 MG/ML 50 ML VIAL (for RAD SPEC) I-ARTERIAL ONE (14:18)
--- NOTE | 2016-09-14 14:46 | PD.RAD ---
Post Procedure Progress Note Pre Procedure Diagnosis: (1) Cerebral aneurysm Post Procedure Diagnosis: (1) Cerebral aneurysm Procedure Date: Sep 14, 2016 Supervising Radiologist: Bryan De La Torre Estimated blood loss: 5cc Anesthesia: General, Local Plan of Activity Patient to Unit: PACU Patient Condition: Good Additional Comments: Limited right Cerebral angio with aneurysmogram completed. Exam demonstrated 2 small vessels originating from the base of the aneurism which is in the location of the right PCOM. No definite right PCOM is evident on the angio. Decision was made not to coil the aneurism due to inability to exclude the entire aneurism without occluding the vessels emanating from the base. See PACS Report for procedural detail/treatment Bryan De La Torre MD Sep 14, 2016 14:46
--- NOTE | 2016-09-14 16:12 | RADRPT ---
EXAM DATE/TIME: 09/14/2016 13:23 [place] COMPARISON: No previous studies available for comparison. INDICATIONS : Headache. Family history of aneurysms. MEDICAL HISTORY : 1.Headache 2. smoker SURGICAL HISTORY : 1. Rotator cuff ENCOUNTER: Initial ACUITY: 3 days PAIN SCORE: 5/10 LOCATION: head FLUORO TIME: 8.6 minutes ACCESS SITE: Right Femoral artery CONTRAST: 125 cc Visipaque (iodixanol) MEDICATION(S): 1.) 5000 units Heparin IV DEVICE(S): 1.) Right common femoral artery 6 fr Angio-Seal Anesthesia and pain control was provided by the Anesthesia department. PROCEDURE : 1. Ultrasound-guided puncture of the access site. 2. Angiography of the access site prior to closure device. 3. Conscious sedation with continuous EKG and Oximetry monitoring. 4. Percutaneous closure of the access site. 5. Angiography of the right groin 6. Angiography of the right carotid 7. cerebral angiography of the right internal carotid circulation. The risks, benefits and alternatives to the procedure were explained and verbal and written consent w as obtained. The site was prepped in sterile fashion. Full sterile technique was used, including ca p, mask, sterile gloves and gown and a large sterile sheet. Hand hygiene and 2% chlorhexidine and/or betadine/alcohol prep was utilized per protocol for cutaneous antisepsis. The skin and subcutaneous tissues were infiltrated with local anesthetic solution. With ultrasound and fluoroscopic guidance the right common femoral artery was punctured and a vascula r sheath was placed. Angiography of the common femoral artery was performed for evaluation prior to percutaneous closure device placement. A 4 [place] hemostatic sheath was placed. The 0.035 angle Glidewire JB2 catheter were manipulated into the right internal carotid. Limited evaluation of the intracranial circulation was performed. The aaron burgos's right posterior communicating artery aneurysm was easily identified. The 0.035 angle Glidewire JB2 catheter were manipulated into the external carotid circulation. The Gl idewire was exchanged for a Magic torque. A 6 [place] 90 cm sheath was advanced from the right groin a nd parked within the proximal common carotid. A 5 [place] neuron guide catheter was advanced over a 0. 035 angled Glidewire and a 4 [place] glide catheter and parked in the distal right internal carotid ci rculation. Multiple angiographic runs of the patient's aneurysm were performed. A suitable projection was obtained. A Prowler microcatheter was advanced through the guide catheter and the aneurysm was e asily selected. Injection into the aneurysm was performed in multiple projections. These demonstrated 2 small arteries originating from the base of the aneurysm. A 360 spin was performed. This confirmed the small arteries originating from the base of the aneurys m. As such, the decision was made not to proceed with coiling as the entire aneurysm could not be exc luded from the circulation. Hemostasis was obtained with the prescribed medicated closure device. Conscious sedation was perfor med with the prescribed dosages and duration as above. EKG and oximetry remained stable throughout t he procedure. The patient was sent to post anesthesia recovery in stable condition. CONCLUSION: 1. Cerebral angiography confirms the 5 mm aneurysm which likely originates from the base of the P-com m. It should be noted there is no posterior communicating artery on the right. Unfortunately, there a re 2 small vessels which originate from the base of the aneurysm and feed the thalamus. As such, the decision was made not to proceed with endovascular treatment as the entire aneurysm could not be excl uded from circulation. Bryan De La Torre MD on September 14, 2016 at 15:59 Board Certified Radiologist. This report was verified electronically.
[2016-09-14] MEDS ORDERED: NICOTINE 14 MG/24 HR PATCH TD SCH (19:15)
--- NOTE | 2016-09-14 19:21 | HHI.NSPN ---
History Chief Complaint: headache Interval History 41-year-old male with complaint of severe headache for approximately 4 days. Patient awoke with severe headache in the morning approximately 4 days ago. No history of significant previous headaches. Positive nausea without emesis. No fevers or chills. Exam Results Vital Signs Date Time Temp Pulse Resp B/P Pulse Ox O2 Delivery O2 Flow Rate FiO2 09/14/16 18:00 84 09/14/16 16:00 97.5 20 135/67 97 09/14/16 15:40 Nasal Cannula 4 09/14/16 15:04 40 Intake and Output 09/13/16 09/13/16 09/14/16 08:00 16:00 00:00 Intake Total 1000 ml Balance 1000 ml Physical Examination Respirations clear to auscultation Cardiac regular without murmur Remains awake and alert status post angiography. Extraocular movements and facial motor movements symmetric Sensorimotor function intact all extremities Lab, Micro, Other Results Last Impressions Cerebral Arteriogram 09/14/16 1231 Signed Impressions: Service Date/Time: August 13:23 - CONCLUSION: 1. Cerebral angiography confirms the 5 mm aneurysm which likely originates from the base of the P-comm. It should be noted there is no posterior communicating artery on the right. Unfortunately, there are 2 small vessels which originate from the base of the aneurysm and feed the thalamus. As such, the decision was made not to proceed with endovascular treatment as the entire aneurysm could not be excluded from circulation. Bryan De La Torre MD Head CT 09/13/162008 Signed Impressions: Service Date/Time: Tuesday, September 13, 2016 20:50 - CONCLUSION: Normal examination. Ken Levy MD Head CTA 09/13/16 0000 Signed Impressions: Service Date/Time: Tuesday, September 13, 2016 20:50 - CONCLUSION: Normal examination. Ken Levy MD ADDENDUM: The case was reviewed for Dr. Kc. The examination demonstrates a 4 mm aneurysm projecting laterally off the supraclinoid carotid on the right likely arising from the posterior communicating on the right. This is obscured by the skull base and is quite difficult to visualize on the source data. Conventional cerebral angiogram is pending. Bryan De La Torre MD Laboratory Tests Test 09/13/16 09/13/16 09/14/16 20:15 21:58 06:00 White Blood Count 9.1 TH/MM3 Red Blood Count 4.95 MIL/MM3 Hemoglobin 15.9 GM/DL Hematocrit 45.9 % Mean Corpuscular Volume 92.8 FL Mean Corpuscular Hemoglobin 32.2 PG Mean Corpuscular Hemoglobin 34.7 % Concent Red Cell Distribution Width 12.0 % Platelet Count 219 TH/MM3 Mean Platelet Volume 8.6 FL Neutrophils (%) (Auto) 62.8 % Lymphocytes (%) (Auto) 29.3 % Monocytes (%) (Auto) 5.1 % Eosinophils (%) (Auto) 2.0 % Basophils (%) (Auto) 0.8 % Neutrophils # (Auto) 5.6 TH/MM3 Lymphocytes # (Auto) 2.7 TH/MM3 Monocytes # (Auto) 0.5 TH/MM3 Eosinophils # (Auto) 0.2 TH/MM3 Basophils # (Auto) 0.1 TH/MM3 CBC Comment DIFF FINAL Differential Comment Prothrombin Time 10.9 SEC Prothromb Time International 1.0 RATIO Ratio Activated Partial 28.0 SEC Thromboplast Time Sodium Level 140 MEQ/L Potassium Level 4.3 MEQ/L Chloride Level 107 MEQ/L Carbon Dioxide Level 26.6 MEQ/L Anion Gap 6 MEQ/L Blood Urea Nitrogen 13 MG/DL Creatinine 0.93 MG/DL Estimat Glomerular Filtration 90 ML/MIN Rate Random Glucose 94 MG/DL Calcium Level 8.3 MG/DL CSF Volume (Tube 1) 1.0 ML CSF Supernatant Color (tube 1) CLEAR CSF Gross Blood (Tube 1) 3+ CSF WBC (Tube 1) 0 /MM3 CSF RBC (Tube 1) 64823 /MM3 CSF Volume (Tube 2) 1.0 ML CSF Supernatant Color (tube 2) CLEAR CSF Gross Blood (Tube 2) 3+ CSF Volume (Tube 3) 1.0 ML CSF Supernatant Color (tube 3) CLEAR CSF Gross Blood (Tube 3) 3+ CSF Volume (Tube 4) 1.0 ML CSF Supernatant Color (tube 4) CLEAR CSF Gross Blood (Tube 4) 0 CSF WBC (Tube 4) 0 /MM3 CSF RBC (Tube 4) 04889 /MM3 CSF Neutrophils 0 % CSF Lymphocytes 0 % CSF Glucose 57 MG/DL CSF Total Protein 58.2 MG/DL Nasal Screen MRSA (PCR) NEGATIVE Medical Decision Making Impression and Plan Impression: 1. 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 Per radiology report, patient does not have a defined right posterior communicating artery, but does have 2 thalamic perforators coming off of the neck of the aneurysm. Interventional radiology did not feel that coiling was appropriate given the risk of occlusion of the perforators. Patient's initial CT scan negative for subarachnoid hemorrhage and initial CSF equivocal for traumatic tap versus subarachnoid hemorrhage. However the patient 's symptoms and positive family history suggest probable sentinel bleed with increased risks for further subarachnoid hemorrhage. Plan: Findings were discussed at length with the patient following the cerebral angiogram today. Options of observation, craniotomy for aneurysm clipping, possible further attempts at endovascular treatment at a tertiary care center have all been discussed. He would like to be transferred to [facility] for further evaluation and treatment of the aneurysm. He wishes to proceed with treatment of the aneurysm, particularly since he does have a family history of his sister in her late 30s from a cerebral aneurysm. Discussed with Dr. Grupo Tyler at [facility] who has agreed to accept the patient in transfer. Mark Kc MD Sep 14, 2016 19:21
--- NOTE | 2016-09-14 19:24 | HHI.DCPOC ---
Discharge Care Plan Diagnosis: (1) Cerebral aneurysm Additional Problems Cerebral aneurysm Goals to Promote Your Health * To prevent worsening of your condition and complications * To maintain your health at the optimal level Directions to Meet Your Goals Take your medications as prescribed Follow your dietary instruction Follow activity as directed Keep your appointments as scheduled Take your immunizations and boosters as scheduled If your symptoms worsen call your PCP, if no PCP go to Urgent Care Center or Emergency Room Smoking is Dangerous to Your Health. Avoid second hand smoke Call the 24-hour hour crisis hotline for domestic abuse at Mark Kc MD Sep 14, 2016 19:24
--- NOTE | 2016-09-14 19:25 | HHI.DS ---
Discharge Summary Admission Date Sep 13, 2016 at 23:21 Discharge Date: Sep 14, 2016 Admitting Diagnosis R/O SAH. Procedures 09/14/16: Cerebral angiogram Brief History 41-year-old male states that he awoke 4 days ago in the morning with a severe headache accompanied by nausea without emesis. The headache has persisted up to the present time. He has no history of previous significant headaches. No fevers or chills. No diplopia, blurred vision, tinnitus numbness in the extremities. Patient has exhibited some mild memory loss according to his family. Patient does have a history of a sister at age 39 years due to a cerebral aneurysm. CBC/BMP: 09/13/16201409/13/162014 Significant Findings Laboratory Tests Test 09/13/16 09/13/16 20:15 21:58 Calcium Level 8.3 MG/DL (8.5-10.1) CSF Gross Blood (Tube 1) 3+ (0) CSF RBC (Tube 1) 39752 /MM3 (NONE) CSF Gross Blood (Tube 2) 3+ (0) CSF Gross Blood (Tube 3) 3+ (0) CSF Gross Blood (Tube 4) 3+ (0) CSF RBC (Tube 4) 39002 /MM3 (NONE) CSF Total Protein 58.2 MG/DL (15.0-45.0) Imaging Cerebral Arteriogram 09/14/16 1231 Signed Impressions: Service Date/Time: August 13:23 - CONCLUSION: 1. Cerebral angiography confirms the 5 mm aneurysm which likely originates from the base of the P-comm. It should be noted there is no posterior communicating artery on the right. Unfortunately, there are 2 small vessels which originate from the base of the aneurysm and feed the thalamus. As such, the decision was made not to proceed with endovascular treatment as the entire aneurysm could not be excluded from circulation. Bryan De La Torre MD Head CT 09/13/16 2009 Signed Impressions: Service Date/Time: Tuesday, September 13, 2016 20:50 - CONCLUSION: Normal examination. Ken Levy MD Head CTA 09/13/16 0000 Signed Impressions: Service Date/Time: Tuesday, September 13, 2016 20:50 - CONCLUSION: Normal examination. Ken Levy MD ADDENDUM: The case was reviewed for Dr. Kc. The examination demonstrates a 4 mm aneurysm projecting laterally off the supraclinoid carotid on the right likely arising from the posterior communicating on the right. This is obscured by the skull base and is quite difficult to visualize on the source data. Conventional cerebral angiogram is pending. Bryan De La Torre MD PE at Discharge Respirations clear to auscultation Cardiac regular Awake and alert No cranial nerve lower extremity sensorimotor deficit Pt Condition on Discharge: Stable Discharge Disposition: Disch to Another Hospital Discharge Instructions DIET: Follow Instructions for: As Tolerated, No Restrictions ACTIVITIES You can perform: Weight Bearing As Liana Activities to Avoid: Strenuous Activity Mark Kc MD Sep 14, 2016 19:25
[2016-10-11] MEDS ORDERED: IBUP200C PO (16:46)
[2016-10-11] MEDS ORDERED: ZYRT10TA PO (16:46)
== END 2016-09-14 23:02 | disposition short-term general hospital (02) ==
LOC: PHED 17:26 → INTOOBSV 23:21 → PHEDA 23:21 → N03B 09-14 01:32
PROVIDERS: ADMIT Neurological Surgery; ATTEND Neurological Surgery
DX: I67.1 Cerebral aneurysm, nonruptured (principal)
CPT/HCPCS: 01916; 36224; 62270; 70450; 70496; 76937; 80048; 82945; 84157; 85025; 85610; 85730; 87070; 87205; 87641; 89051; 96361; 96374; 96375; 99285; C1760; C1769; C1887; C1894; G0269; G0378; J1170; J1644; J2250; J2270; J2405; J3010; J7030; Q9967

== ENCOUNTER 2016-09-29 09:30 | Emergency (ER) | payer SELFPAY ==
[~2016-09-29] VITALS: Ht 182.9 cm; Wt 90.0 kg
[2016-09-29 09:42] VITALS: BP 110/72; PULSE 83; RESP 18; TEMP 98.8; O2SAT 99
--- NOTE | 2016-09-29 10:11 | PD ---
HPI Chief Complaint: Wound/Suture/Staple Re-Check Time Seen by Provider: 09:50 Travel History International Travel<30 days: No Contact w/Intl Traveler<30days: No Traveled to known affect area: No History of Present Illness HPI 41-year-old male presents the emergency department status post brain surgery for aneurysm at [place] 8 days prior to arrival. Patient here for wound check and suture and staple removal. Patient had a brain aneurysm that required brain surgery. He states overall he is doing very well. He has no complaints. He has no known drug allergies. PFSH Past Medical History Musculoskeletal: Yes (hx right shoulder surgery) Neurologic: Yes Migraines: Yes Past Surgical History Abdominal Surgery: No Cardiac Surgery: No Ear Surgery: No Endocrine Surgery: No Eye Surgery: No Genitourinary Surgery: No Oral Surgery: No Thoracic Surgery: No Social History Alcohol Use: Yes (Occ.) Tobacco Use: No (patient states he quit smoking.) Substance Use: No Allergies-Medications (Allergen,Severity, Reaction): Coded Allergies: No Known Allergies (Unverified , 09/29/16) Reported Meds & Prescriptions Reported Meds & Active Scripts Active No Active Prescriptions or Reported Medications Review of Systems Except as stated in HPI: all other systems reviewed are Neg General / Constitutional: No: Fever Eyes: No: Visual changes HENT: No: Headaches Cardiovascular: No: Chest Pain or Discomfort Respiratory: No: Shortness of Breath Gastrointestinal: No: Abdominal Pain Genitourinary: No: Dysuria Musculoskeletal: No: Pain Skin: No Rash Neurologic: No: Weakness Psychiatric: No: Depression Endocrine: No: Polydipsia Hematologic/Lymphatic: No: Easy Bruising Physical Exam Narrative GENERAL: Patient appears in no acute distress. SKIN: Warm and dry. Normal color. Normal turgor. Patient has a 25 cm incision from just ahead of the right year extending up to the apex of the anterior parietal scalp. It appears well-healed without signs of dehiscence or cellulitis. There are 37 tanya present. Patient has a secondary incision in the right upper posterior parietal region with 2 sutures present. This appears well-healed as well. HEAD: Atraumatic. Normocephalic. EYES: Pupils equal and round. No scleral icterus. No injection or drainage. ENT: No nasal bleeding or discharge. Mucous membranes pink and moist. Pharynx is normal. NECK: Trachea midline. Supple nontender. CARDIOVASCULAR: Regular rate and rhythm. RESPIRATORY: No accessory muscle use. MUSCULOSKELETAL: Extremities without clubbing, cyanosis, or edema. No obvious deformities. NEUROLOGICAL: Awake and alert. No obvious cranial nerve deficits. Motor grossly within normal limits. Five out of 5 muscle strength in the arms and legs. Normal speech. PSYCHIATRIC: Appropriate mood and affect; insight and judgment normal. Data Data Last Documented VS Vital Signs Date Time Temp Pulse Resp B/P Pulse Ox O2 Delivery O2 Flow Rate FiO2 09/29/16 09:42 98.8 83 18 110/72 99 MDM Medical Decision Making Medical Screen Exam Complete: Yes Emergency Medical Condition: Yes Differential Diagnosis Brain aneurysm. Status post surgery. Wound check with suture removal. Narrative Course Patient is medically stable at time of exam. All Tanya and sutures removed without difficulty. No further medical treatment is necessary at this time. Wound care is discussed with the patient. Patient should follow with his neurosurgeon as scheduled. Diagnosis Primary Impression: Cerebral aneurysm Additional Impression: Encounter for removal of tanya Referrals: Neurosurgeon Patient Instructions: General Instructions Additional Instructions: All Tanya and sutures removed without difficulty. No further medical treatment is necessary at this time. Wound care is discussed with the patient. Patient should follow with his neurosurgeon as scheduled. Med/Other Pt SpecificInfo: No Meds Exist/No RX given, Wound Care Scripts No Active Prescriptions or Reported Meds Disposition: 01 DISCHARGE HOME Condition: Stable Mumtaz Gonzalez Sep 29, 2016 10:11
[2016-10-11] MEDS ORDERED: IBUP200C PO (16:46)
[2016-10-11] MEDS ORDERED: ZYRT10TA PO (16:46)
== END 2016-09-29 10:31 | disposition home or self-care (01) ==
LOC: NEPB 09:30
DX: I67.1 Cerebral aneurysm, nonruptured (principal); Z48.02 Encounter for removal of sutures
CPT/HCPCS: 99282

== ENCOUNTER 2017-01-23 09:23 | Emergency (ER) | payer SELFPAY ==
[~2017-01-23] VITALS: Ht 182.9 cm; Wt 90.0 kg
[~2017-01-23 09:23] MED LIST changes: -BENZ100 PO; +IBUP200C PO; -PRED20 PO; +ZYRT10TA PO
[2017-01-23 09:24] VITALS: BP 158/93; PULSE 97; RESP 16; TEMP 97.8; O2SAT 98
--- NOTE | 2017-01-23 10:18 | PD ---
HPI Chief Complaint: Headache Time Seen by Provider: 10:02 Travel History International Travel<30 days: No Contact w/Intl Traveler<30days: No Traveled to known affect area: No History of Present Illness HPI 41-year-old male complains of headache, neck pain, irritable and poor appetite. Patient states that the symptoms started 2 days ago. Patient states the headache and mild aching headache on the right side the head. Patient denies any visual change. Patient states that he has mild aching neck pain. Patient denies any stiff neck. Patient denies any fever. Patient denies any recent head injury. Patient denies any focal weakness or numbness of extremity. Patient status post craniotomy and aneurysm repair in August 2016 at [facility]. Patient states that the aneurysm was clipped. Patient denies any chest pain or shortness of breath. Patient denies abdominal pain. Patient denies any focal weakness or numbness of the extremity. Patient denies any nausea vomiting. Patient states that he was instructed to have repeat MRI in March of this year. Patient states that the clip is safe for MRI. 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) Oral Surgery: No Thoracic Surgery: No Social History Alcohol Use: Yes (Occ.) Tobacco Use: No (patient states he quit smoking in aug 2016) Substance Use: No Allergies-Medications (Allergen,Severity, Reaction): Coded Allergies: No Known Allergies (Unverified , 01/23/17) Reported Meds & Prescriptions Reported Meds & Active Scripts Active No Active Prescriptions or Reported Medications Review of Systems General / Constitutional: No: Fever Eyes: No: Visual changes HENT: Positive: Headaches, Neck Pain Cardiovascular: No: Chest Pain or Discomfort Respiratory: No: Shortness of Breath Gastrointestinal: No: Abdominal Pain Genitourinary: No: Dysuria Musculoskeletal: No: Pain Skin: No Rash Neurologic: No: Weakness Psychiatric: No: Depression Endocrine: No: Polydipsia Hematologic/Lymphatic: No: Easy Bruising Physical Exam Narrative GENERAL: Well-nourished, well-developed patient. SKIN: Focused skin assessment warm/dry. HEAD: Normocephalic. EYES: No scleral icterus. No injection or drainage. Pupils 3 mm equal reactive. NECK: Supple, trachea midline. No JVD or lymphadenopathy. No meningismus CARDIOVASCULAR: Regular rate and rhythm without murmurs, gallops, or rubs. RESPIRATORY: Breath sounds equal bilaterally. No accessory muscle use. GASTROINTESTINAL: Abdomen soft, non-tender, nondistended. MUSCULOSKELETAL: No cyanosis, or edema. BACK: Nontender without obvious deformity. No CVA tenderness. Neurologic exam normal. Data Data Last Documented VS Vital Signs Date Time Temp Pulse Resp B/P Pulse Ox O2 Delivery O2 Flow Rate FiO2 01/23/17 18:16 97.8 68 16 108/69 98 Room Air Orders Complete Blood Count With Diff (01/23/17 10:11) Comprehensive Metabolic Panel (01/23/17 10:11) Prothrombin Time / Inr (Pt) (01/23/17 10:11) Act Partial Throm Time (Ptt) (01/23/17 10:11) Ct Brain W/O Iv Contrast(Rout) (01/23/17 10:11) Iv Access Insert/Monitor (01/23/17 10:11) Ecg Monitoring (01/23/17 10:11) Oximetry (01/23/17 10:11) C-Reactive Protein (Crp) (01/23/17 10:17) Westergren Sedimentation Rate (01/23/17 10:17) Mri Brain W/O Contrast (01/23/17 11:29) Mra Brain W/O Contrast (Cow) (01/23/17 11:29) Mra Carotids W Contrast (01/23/17 11:29) Diet Regular Basic (01/23/17 Dinner) Labs Laboratory Tests Test 01/23/17 10:35 White Blood Count 4.8 TH/MM3 Red Blood Count 4.69 MIL/MM3 Hemoglobin 14.7 GM/DL Hematocrit 42.6 % Mean Corpuscular Volume 90.8 FL Mean Corpuscular Hemoglobin 31.3 PG Mean Corpuscular Hemoglobin 34.5 % Concent Red Cell Distribution Width 13.4 % Platelet Count 212 TH/MM3 Mean Platelet Volume 9.0 FL Neutrophils (%) (Auto) 56.4 % Lymphocytes (%) (Auto) 34.3 % Monocytes (%) (Auto) 6.9 % Eosinophils (%) (Auto) 1.7 % Basophils (%) (Auto) 0.7 % Neutrophils # (Auto) 2.7 TH/MM3 Lymphocytes # (Auto) 1.7 TH/MM3 Monocytes # (Auto) 0.3 TH/MM3 Eosinophils # (Auto) 0.1 TH/MM3 Basophils # (Auto) 0.0 TH/MM3 CBC Comment DIFF FINAL Differential Comment Erythrocyte Sedimentation Rate 2 mm/hr Prothrombin Time 11.4 SEC Prothromb Time International 1.0 RATIO Ratio Activated Partial 26.1 SEC Thromboplast Time Sodium Level 141 MEQ/L Potassium Level 3.8 MEQ/L Chloride Level 109 MEQ/L Carbon Dioxide Level 25.2 MEQ/L Anion Gap 7 MEQ/L Blood Urea Nitrogen 8 MG/DL Creatinine 0.64 MG/DL Estimat Glomerular Filtration 139 ML/MIN Rate Random Glucose 82 MG/DL Calcium Level 8.5 MG/DL Total Bilirubin 0.4 MG/DL Aspartate Amino Transf 16 U/L (AST/SGOT) Alanine Aminotransferase 30 U/L (ALT/SGPT) Alkaline Phosphatase 81 U/L C-Reactive Protein LESS THAN 0.29 MG/DL Total Protein 7.1 GM/DL Albumin 4.0 GM/DL MDM Medical Decision Making Medical Screen Exam Complete: Yes Emergency Medical Condition: Yes Interpretation(s) 11:[address] scan of brain showed chronic changes. No acute infarct or acute hemorrhage. CBC within normal limit. CMP within normal limit. C-reactive protein less than 0.29. Differential Diagnosis Differential diagnosis including migraine headache, tension headache, cluster headache, encephalitis, intracranial hemorrhage. Narrative Course 41-year-old male with headache, neck pain, poor appetite and irritable. History of craniotomy and aneurysm repair in August 2016. Diagnosis Primary Impression: Cephalgia Scripts No Active Prescriptions or Reported Meds Obi Colorado MD Jan 23, 2017 10:18
[2017-01-23 10:58] LABS: APTT (PATIENT) 26.1 SEC (24.3-30.1); PROTHROMBIN TIME - PATIENT 11.4 SEC (9.8-11.6)
[2017-01-23 10:59] LABS: AUTOMATED NEUTROPHIL # 2.7 TH/MM3 (1.8-7.7); BASOPHIL % 0.7 % (0.0-2.0); EOSINOPHIL # 0.1 TH/MM3 (0-0.4); EOSINOPHIL % 1.7 % (0.0-4.0); HEMATOCRIT 42.6 % (39.0-51.0); HEMO FLAGS DIFF FINAL; LYMPH % 34.3 % (9.0-44.0); LYMPHOCYTE # 1.7 TH/MM3 (1.0-4.8); MEAN CELL VOLUME 90.8 FL (80.0-100.0); MEAN CORPUSCULAR HEMOGLOBIN 31.3 PG (27.0-34.0); MEAN CORPUSCULAR HGB CONC 34.5 % (32.0-36.0); MONO % 6.9 % (0.0-8.0); NEUT % 56.4 % (16.0-70.0); PLATELET COUNT 212 TH/MM3 (150-450); RED BLOOD COUNT 4.69 MIL/MM3 (4.50-5.90); RED CELL DISTRIBUTION WIDTH 13.4 % (11.6-17.2); WHITE BLOOD COUNT 4.8 TH/MM3 (4.0-11.0)
[2017-01-23 11:09] LABS: ALT (GPT) 30 U/L (12-78); ANION GAP 7 MEQ/L (5-15); AST (GOT) 16 U/L (15-37); BICARBONATE 25.2 MEQ/L (21.0-32.0); BLOOD UREA NITROGEN 8 MG/DL (7-18); CHLORIDE 109 MEQ/L (98-107); GLOMERULAR FILTRATION RATE 139 ML/MIN (>89); POTASSIUM 3.8 MEQ/L (3.5-5.1); SODIUM (NA) 141 MEQ/L (136-145)
[2017-01-23 11:11] LABS: ALKALINE PHOSPHATASE 81 U/L (45-117); TOTAL BILIRUBIN ADULT 0.4 MG/DL (0.2-1.0)
--- NOTE | 2017-01-23 11:12 | RADRPT ---
EXAM DATE/TIME: 01/23/2017 10:58 [facility] COMPARISON: CT BRAIN W/O CONTRAST, September 13, 2016, 20:50. INDICATIONS : Cephalgia. Neck pain. RADIATION DOSE: 56.35 CTDIvol (mGy) MEDICAL HISTORY : Hemmorhagic stroke. Aneurysm. SURGICAL HISTORY : Craniotomy. Aneurysm clipped. ENCOUNTER: Initial ACUITY: 2 days PAIN SCALE: 6/10 LOCATION: Right temporal TECHNIQUE: Multiple contiguous axial images were obtained of the head. Using automated exposure control and adj ustment of the mA and/or kV according to patient size, radiation dose was kept as low as reasonably a chievable to obtain optimal diagnostic quality images. DICOM format image data is available electro nically for review and comparison. FINDINGS: CEREBRUM: The ventricles are normal for age. No evidence of midline shift, mass lesion, hemorrhage or acute in farction. No extra-axial fluid collections are seen. Tiny old lacunar infarcts is noted within the r ight basal ganglia. Focal encephalomalacia is noted within the anterior aspect of the right temporal lobe. POSTERIOR FOSSA: The cerebellum and brainstem are intact. The 4th ventricle is midline. The cerebellopontine angle i s unremarkable. EXTRACRANIAL: The visualized portion of the orbits is intact. SKULL: The calvaria is intact. No evidence of skull fracture. Right frontoparietal and temporal craniotomy noted status post aneurysm clipping. CONCLUSION: 1. No acute infarct, acute hemorrhage, mass effect or extra axial fluid collections. 2. Tiny old lacunar infarcts within the right basal ganglia. 3. Focal encephalomalacia within the anterior aspect of the right temporal lobe. Eduar Raya MD on January 23, 2017 at 11:07 Board Certified Radiologist. This report was verified electronically.
[2017-01-23 15:00] VITALS: BP 107/59; PULSE 78; RESP 16; O2SAT 98
[2017-01-23 18:16] VITALS: BP 108/69; PULSE 68; RESP 16; TEMP 97.8; O2SAT 98
--- NOTE | 2017-01-23 19:08 | PD ---
Physical Exam Narrative General: The patient is a well-developed well-nourished male in no acute distress. Head and Neck exam: Head is normocephalic, evidence of asymmetry to his skull status post craniotomy on the right side overlying the right zoroastrianism. There is no overlying erythema, edema, or tenderness on palpation. Eyes: EOMI, pupils are equal round and reactive to light. Nose: Midline septum with pink mucous membranes Mouth: Dentition unremarkable. Moist mucus membranes. Posterior oropharynx is not erythematous. No tonsillar hypertrophy. Uvula midline. Airway patent. Neck: No palpable lymphadenopathy. No nuchal rigidity. No thyromegaly. Cardiovascular: Regular rate and rhythm without murmurs, gallops, or rubs. Lungs: Clear to auscultation bilaterally. No wheezes, rhonchi, or rales. Abdomen: Soft, without tenderness to palpation in all 4 quadrants of the abdomen. No guarding, rebound, or rigidity. Normal bowel sounds are audible. Extremities: No clubbing, cyanosis, or edema. Back: No spinous process tenderness to palpation. No costovertebral angle tenderness to palpation. Neurologic Exam: Cranial nerves 2-12 were intact on exam. Strength is 5/5 in all 4 extremities. No sensory deficits noted. Skin Exam: No rash noted. Intact skin that is warm and dry. Data Data Last Documented VS Vital Signs Date Time Temp Pulse Resp B/P Pulse Ox O2 Delivery O2 Flow Rate FiO2 01/23/17 18:16 97.8 68 16 108/69 98 Room Air Orders Complete Blood Count With Diff (01/23/17 10:11) Comprehensive Metabolic Panel (01/23/17 10:11) Prothrombin Time / Inr (Pt) (01/23/17 10:11) Act Partial Throm Time (Ptt) (01/23/17 10:11) Ct Brain W/O Iv Contrast(Rout) (01/23/17 10:11) Iv Access Insert/Monitor (01/23/17 10:11) Ecg Monitoring (01/23/17 10:11) Oximetry (01/23/17 10:11) C-Reactive Protein (Crp) (01/23/17 10:17) Westergren Sedimentation Rate (01/23/17 10:17) Mri Brain W/O Contrast (01/23/17 11:29) Mra Brain W/O Contrast (Cow) (01/23/17 11:29) Mra Carotids W Contrast (01/23/17 11:29) Diet Regular Basic (01/23/17 Dinner) Gadodiamide Pf Inj (Omniscan Pf Inj) (01/23/17 20:33) Acetamin-Hydrocod 325-5 Mg (Ovalo 5-325 (01/23/17 21:45) Labs Laboratory Tests Test 01/23/17 10:35 White Blood Count 4.8 TH/MM3 Red Blood Count 4.69 MIL/MM3 Hemoglobin 14.7 GM/DL Hematocrit 42.6 % Mean Corpuscular Volume 90.8 FL Mean Corpuscular Hemoglobin 31.3 PG Mean Corpuscular Hemoglobin 34.5 % Concent Red Cell Distribution Width 13.4 % Platelet Count 212 TH/MM3 Mean Platelet Volume 9.0 FL Neutrophils (%) (Auto) 56.4 % Lymphocytes (%) (Auto) 34.3 % Monocytes (%) (Auto) 6.9 % Eosinophils (%) (Auto) 1.7 % Basophils (%) (Auto) 0.7 % Neutrophils # (Auto) 2.7 TH/MM3 Lymphocytes # (Auto) 1.7 TH/MM3 Monocytes # (Auto) 0.3 TH/MM3 Eosinophils # (Auto) 0.1 TH/MM3 Basophils # (Auto) 0.0 TH/MM3 CBC Comment DIFF FINAL Differential Comment Erythrocyte Sedimentation Rate 2 mm/hr Prothrombin Time 11.4 SEC Prothromb Time International 1.0 RATIO Ratio Activated Partial 26.1 SEC Thromboplast Time Sodium Level 141 MEQ/L Potassium Level 3.8 MEQ/L Chloride Level 109 MEQ/L Carbon Dioxide Level 25.2 MEQ/L Anion Gap 7 MEQ/L Blood Urea Nitrogen 8 MG/DL Creatinine 0.64 MG/DL Estimat Glomerular Filtration 139 ML/MIN Rate Random Glucose 82 MG/DL Calcium Level 8.5 MG/DL Total Bilirubin 0.4 MG/DL Aspartate Amino Transf 16 U/L (AST/SGOT) Alanine Aminotransferase 30 U/L (ALT/SGPT) Alkaline Phosphatase 81 U/L C-Reactive Protein LESS THAN 0.29 MG/DL Total Protein 7.1 GM/DL Albumin 4.0 GM/DL [facility] Medical Record Reviewed: Yes Supervised Visit with GEE: No Interpretation(s) Last Impressions Head CT 01/23/17 1011 Signed Impressions: Service Date/Time: Monday, January 23, 2017 10:58 - CONCLUSION: 1. No acute infarct, acute hemorrhage, mass effect or extra axial fluid collections. 2. Tiny old lacunar infarcts within the right basal ganglia. 3. Focal encephalomalacia within the anterior aspect of the right temporal lobe. Eduar Ryaa MD Narrative Course During the course of the patients emergency department visit, the patients history, examination, and differential diagnosis were reviewed with the patient. The patient had IV access obtained and blood work sent for analysis. The patient states on a teletypesetter monitor with oximetry and blood pressure monitoring. The patient's case was checked out to me by Dr. Colorado pending receivable back of MRI/MRA results. The patient is a 41-year-old male who presents to [facility] emergency Department with a history of cerebral aneurysm status post clipping after evaluation at [facility]. The patient was initially seen and [place] and transferred to that facility for definitive care. The patient was scheduled for a repeat MRI MRA in March, however over the last 2 days he's had an increasing headache over the right side of his head and an achy sensation in his neck. The patients laboratory studies were reviewed and remarkable for a CBC that is within normal limits, sedimentation rate is 2, CMP is remarkable for chloride of 109, C-reactive protein less than 0.29, PT PTT within normal limits. Radiology studies were reviewed and remarkable for a CT scan of the brain shows no acute infarct, acute hemorrhage, mass effect or extra-axial fluid collection , tiny old lacunar infarcts within the right basal ganglia, focal encephalomalacia within the anterior aspect of the right temporal lobe. The patient's MRI of the brain without contrast reveals an area of suspected developing encephalomalacia at the anterior right temporal lobe. An area of infarction on the diffusion-weighted images that is not seen. MRA of the brain reveals no evidence of aneurysm clearly detected, clip is noted to be in place, there is some artifact related to the clip. A residual aneurysm in this region is not clearly seen, however again there is some artifact in this region. MRA of the carotids reveals a normal examination. As MRI results were coming back and showing no acute abnormality I did have the further discussion with the patient. The patient reports that he would like me to call his neurosurgeon in [facility] regarding his findings today. A call has been placed out to Dr. Tyler regarding the patient's results. The patient reports that he was discharged home with a pain medication from [facility] that he was not able to afford. The patient reports that instead he has been taking ibuprofen for pain. We did discuss the fact that I would not recommend an agent that affects his platelets for his pain control given his recent aneurysm surgery. The patient was instead instructed to take for pain that is 1-4 out of 10 in severity Tylenol [id number] the weights written on the package, or if pain is 5-10 out of 10 in severity, hydrocodone. The patient was given a prescription at discharge. The patient was additionally given hydrocodone 10 mg by mouth 1 in the emergency department. The patient is resting comfortably and feels better, is alert and in no distress. The patients results and examination findings were discussed with the patient. The repeat examination is unremarkable and benign. The history, exam, diagnostic testing, and current condition do not suggest any significant pathology to warrant further testing, continued ED treatment, admission, or surgical evaluation at this point. The vital signs have been stable. The patient does not have uncontrollable pain, intractable vomiting, or other significant symptoms. The patient's condition is stable and appropriate for discharge. The patient will pursue further outpatient evaluation with a primary care physician or other designated or consulting physician as indicated in the discharge instructions. The patient expressed understanding and was agreeable with this plan. Physician Communication Physician Communication A call has been placed out to . Diagnosis Primary Impression: Cephalgia Qualified Code: R51 - Nonintractable episodic headache, unspecified headache type Referrals: Neurosurgeon Primary Care Physician Patient Instructions: General Headache (ED), General Instructions Med/Other Pt SpecificInfo: Prescription(s) given Scripts Hydrocodone-Acetaminophen (Lortab)5-325 Mg Tab1 Tab PO Q6H PRN (PAIN SCALE 5 TO 10) #20 TAB Ref 0 Prov:Cony Mcmahon MD 01/23/17 Disposition: 01 DISCHARGE HOME Condition: Stable Cony Mcmahon MD Jan 23, 2017 19:08
[2017-01-23] MEDS ORDERED: GADODIAMIDE PF 287 MG/ML 20 ML VIAL (for RAD MRI) IV ONE (20:33)
--- NOTE | 2017-01-23 21:26 | RADRPT ---
EXAM DATE/TIME: 01/23/2017 20:23 [facility] COMPARISON: CTA BRAIN W 3D RECON, September 13, 2016, 20:50. ANGIOGRAM, CEREBRAL WO ARCH, September 14, 2016, 13:23. CT BRAIN W/O CONTRAST, September 13, 2016, 20:50. CT BRAIN W/O CONTRAST, January 23, 2017, 10:58. INDICATIONS : CVA. Headache and neck pain. MEDICAL HISTORY : Stroke Aneurysm, intracranial. SURGICAL HISTORY : Craniotomy. Rotator cuff, right. Intracranial aneurysm clip. ENCOUNTER: Subsequent ACUITY: 2 day PAIN SCORE: 5/10 LOCATION: Cranial TECHNIQUE: Multiplanar, multisequence MRI of the brain was performed without contrast. FINDINGS: There is an MR compatible aneurysm clip seen in the right suprasellar cistern region. There is increased signal seen on the FLAIR and T2 weighted images in the anterior left temporal lobe likely related to developing encephalomalacia. No abnormality is identified on the diffusion weight ed images to suggest acute infarct. There is a small focus of increased signal seen within the media l right basal ganglia likely representing an old lacunar infarct. There is some dilatation of the ri ght temporal horn in response to the developing encephalomalacia at the anterior left temporal lobe. The ventricles have an otherwise normal configuration. No extra-axial fluid collections or areas of acute hemorrhage are seen. The patient has postoperative change from prior right craniotomy. CONCLUSION: 1. Area of suspected developing encephalomalacia at the anterior right temporal lobe. An area of acu te infarction on the diffusion weighted images is not seen. 2. Aneurysm clip in the right suprasellar cistern region. This was known to be MR compatible before scanning the patient. 3. The patient is status post right craniotomy. Ken Levy MD on January 23, 2017 at 21:11 Board Certified Radiologist. This report was verified electronically.
--- NOTE | 2017-01-23 21:35 | RADRPT ---
EXAM DATE/TIME: 01/23/2017 20:23 [facility] COMPARISON: No previous studies available for comparison. INDICATIONS : Stroke. Heachache and neck pain. CONTRAST: 20 cc Omniscan (gadodiamide) IV MEDICAL HISTORY : Stroke Aneurysm, intracranial. SURGICAL HISTORY : Craniotomy. Rotator cuff, right. Intracranial aneurysm clip. ENCOUNTER: Subsequent ACUITY: 1 day PAIN SCORE: 5/10 LOCATION: cranial Percent stenosis is calculated using the diameter of the stenotic region over the diameter of the nor mal distal internal carotid artery. TECHNIQUE: Bolus infused MRA of the extracranial circulation was performed using a neurovascular coil. Post pro cessing was performed including rotating subvolume maximum intensity projections of each carotid neris ry, rotating full volume maximum intensity projections of both carotid arteries, sagittal and coronal sliding thin slab reformations of each carotid artery, and left oblique sliding thin slab reformatio n through the aortic arch to include the origin of the arch branch vessels. FINDINGS: AORTIC ARCH: The left common carotid artery arises from the base of the right brachiocephalic artery which is a no rmal variant. No evidence of ostial narrowing. RIGHT CAROTID: The common carotid artery is intact. The carotid bulb has a normal configuration without ulceration or narrowing. The internal carotid artery lumen is smooth without stenosis. The external carotid ar guillaume is intact. LEFT CAROTID: The common carotid artery is intact. The carotid bulb has a normal configuration without ulceration or narrowing. The internal carotid artery lumen is smooth without stenosis. The external carotid ar guillaume is intact. VERTEBRALS: The vertebral arteries have a symmetric diameter. No stenotic lesions are seen. CONCLUSION: Normal examination. Ken Levy MD on January 23, 2017 at 21:31 Board Certified Radiologist. This report was verified electronically.
--- NOTE | 2017-01-23 21:35 | RADRPT ---
EXAM DATE/TIME: 01/23/2017 20:23 [facility] COMPARISON: CTA BRAIN W 3D RECON, September 13, 2016, 20:50. INDICATIONS : CVA. Headache and neck pain. MEDICAL HISTORY : Stroke Aneurysm, intracranial. SURGICAL HISTORY : Craniotomy. Rotator cuff, right. Intracranial aneurysm clip. ENCOUNTER: Subsequent ACUITY: 2 day PAIN SCORE: 5/10 LOCATION: Cranial Please note a normal MRA of the brain does not entirely exclude the possibility of a small aneurysm, nor the possibility of distal intracranial vessel disease. TECHNIQUE: 3D time of flight MRA was performed. Source images, multiplanar STS MIP, and 3D volum e MIP reconstructions were reviewed. FINDINGS: The internal carotids are patent bilaterally. They seem to normally bifurcate into the anterior and middle cerebral arteries. There is an area of susceptibility artifact seen at the right lateral suprasellar cistern region from an MR compatible aneurysm clip. This does cause some limit ation of evaluation of the distal right internal carotid artery and proximal right middle cerebral ar guillaume. A residual aneurysm in this region is not clearly seen but again there is some artifact in thi s region. The basilar artery is formed from the two vertebral arteries. It primarily ends at the ri ght posterior cerebral artery. The left posterior cerebral artery derives flow from both the left in ternal carotid artery and the basilar artery. The distal flow appears symmetric throughout. CONCLUSION: MR compatible aneurysm clip in the right suprasellar cistern region. This does cause some susceptibility artifact in this region. An aneurysm is not clearly detected. Ken Levy MD on January 23, 2017 at 21:20 Board Certified Radiologist. This report was verified electronically.
[2017-01-23] MEDS ORDERED: ACETAMINOPHEN/HYDROcodone 325 MG/5 MG TAB PO ONE (21:45)
[2017-01-23] MEDS ORDERED: HYDR-3533 PO (21:46)
[2017-01-23 22:33] VITALS: BP 110/71; PULSE 71; RESP 18; O2SAT 97
== END 2017-01-23 22:56 | disposition home or self-care (01) ==
LOC: NEPE 09:23
DX: R51 Headache (principal); Z86.73 Personal history of transient ischemic attack (TIA), and cerebral infarction without residual deficits
CPT/HCPCS: 70450; 70544; 70548; 70551; 80053; 85025; 85610; 85652; 85730; 86140; 99285; A9579

== ENCOUNTER 2017-05-15 07:54 | Emergency (ER) | payer SELFPAY ==
[~2017-05-15] VITALS: Ht 182.9 cm; Wt 86.0 kg
[~2017-05-15 07:54] MED LIST changes: +HYDR-3533 PO; -IBUP200C PO; -ZYRT10TA PO
[2017-05-15 07:59] VITALS: BP 137/75; PULSE 96; RESP 16; TEMP 98.8; O2SAT 98
[2017-05-15] MEDS ORDERED: PENI500T PO (08:11)
[2017-05-15] MEDS ORDERED: IBUP-232 PO (08:11)
--- NOTE | 2017-05-15 08:11 | PD ---
HPI Chief Complaint: Oral / Dental Pain or Problem Time Seen by Provider: 08:02 Travel History International Travel<30 days: No Contact w/Intl Traveler<30days: No Traveled to known affect area: No History of Present Illness HPI 41-year-old male who presents to emergency room with complaints of tooth pain. Patient reports that he has poor dentition, reports that he has been having problems with his left upper molar for quite some time. Reports that he has gotten infected in the past but he does not have the resources to go to a dentist. he reports that since last night, he has had increased pains to his left upper molar. Patient is concerned for possible tooth infection. Patient is attempting to make an appointment with a dentist at this time. Patient with no fevers or chills, no trismus. Patient with no other complaints. 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) Oral Surgery: No Thoracic Surgery: No Social History Alcohol Use: Yes (Occ.) Tobacco Use: No (patient states he quit smoking in aug 2016) Substance Use: No Allergies-Medications (Allergen,Severity, Reaction): Coded Allergies: No Known Allergies (Unverified , 05/15/17) Reported Meds & Prescriptions Reported Meds & Active Scripts Active Lortab (Hydrocodone-Acetaminophen) 5-325 Mg Tab 1 Tab PO Q6H PRN Review of Systems General / Constitutional: No: Fever Eyes: No: Visual changes HENT: Positive: Dental Difficulties, No: Headaches Cardiovascular: No: Chest Pain or Discomfort Respiratory: No: Shortness of Breath Gastrointestinal: No: Abdominal Pain Genitourinary: No: Dysuria Musculoskeletal: No: Pain Skin: No Rash Neurologic: No: Weakness Psychiatric: No: Depression Endocrine: No: Polydipsia Hematologic/Lymphatic: No: Easy Bruising Physical Exam Narrative GENERAL: Well-nourished, well-developed patient. SKIN: Focused skin assessment warm/dry. HEAD: Normocephalic. EYES: No scleral icterus. No injection or drainage. Mouth: patient with poor dentition, left sided cervical adenopathy, pt with tenderness to left upper molar - there is no obvious abscess or drainage on exam , no trismus NECK: Supple, trachea midline. No JVD CARDIOVASCULAR: Regular rate and rhythm without murmurs, gallops, or rubs. RESPIRATORY: Breath sounds equal bilaterally. No accessory muscle use. GASTROINTESTINAL: Abdomen soft, non-tender, nondistended. MUSCULOSKELETAL: No cyanosis, or edema. BACK: Nontender without obvious deformity. No CVA tenderness. Data Data Last Documented VS Vital Signs Date Time Temp Pulse Resp B/P (MAP) Pulse Ox O2 Delivery O2 Flow Rate FiO2 05/15/17 07:59 98.8 96 16 137/75 (95) 98 Orders Orders Penicillin V Potassium (Veetids) (05/15/17 08:15) Ibuprofen (Motrin) (05/15/17 08:15) MDM Medical Decision Making Medical Screen Exam Complete: Yes Emergency Medical Condition: Yes Medical Record Reviewed: Yes Interpretation(s) Vital Signs Date Time Temp Pulse Resp B/P (MAP) Pulse Ox O2 Delivery O2 Flow Rate FiO2 05/15/17 07:59 98.8 96 16 137/75 (95) 98 Differential Diagnosis Dental infection, dental abscess Narrative Course Patient with dental pain, possible dental infection, plan to treat with Jade Jean Patient understands importance of following up with dentist as soon as possible as this tooth has been an issue for him for a while. He will return to the emergency room as needed. Diagnosis Primary Impression: Pain due to dental caries Patient Instructions: General Instructions Additional Instructions: Please follow-up with a dentist as soon as possible Take all medications as prescribed Return to the emergency room as needed Med/Other Pt SpecificInfo: Prescription(s) given Scripts Penicillin V Potassium (Penicillin V Potassium) 500 Mg Tab 500 MG PO Q6H for Infection for 10 Days, #40 TAB 0 Refills Prov: Loree Cedeño DO 05/15/17 Ibuprofen (Ibuprofen) 600 Mg Tab 600 MG PO Q6H Y for Pain/Inflammation, #40 TAB 0 Refills Prov: Loree Cedeño DO 05/15/17 Disposition: 01 DISCHARGE HOME Condition: Stable Loree Cedeño DO May 15, 2017 08:11
[2017-05-15] MEDS ORDERED: IBUPROFEN 600 MG TAB PO ONE (08:15)
[2017-05-15] MEDS ORDERED: PENICILLIN V POTASSIUM 500 MG TAB PO ONE (08:15)
== END 2017-05-15 08:38 | disposition home or self-care (01) ==
LOC: PHED 07:54
DX: K08.89 Other specified disorders of teeth and supporting structures (principal); Z86.73 Personal history of transient ischemic attack (TIA), and cerebral infarction without residual deficits; Z87.891 Personal history of nicotine dependence
CPT/HCPCS: 99283

== ENCOUNTER 2017-05-15 18:36 | Emergency (ER) | payer SELFPAY ==
[~2017-05-15] VITALS: Ht 182.9 cm; Wt 85.4 kg
[~2017-05-15 18:36] MED LIST changes: +IBUP-232 PO; +PENI500T PO
[2017-05-15 18:52] VITALS: BP 121/73; PULSE 86; RESP 16; TEMP 98.6; O2SAT 97
[2017-05-15 19:24] VITALS: BP 115/68
--- NOTE | 2017-05-15 19:27 | PD ---
HPI Chief Complaint: Nosebleed Time Seen by Provider: 19:21 Travel History International Travel<30 days: No Contact w/Intl Traveler<30days: No Traveled to known affect area: No History of Present Illness HPI 41-year-old male presents to the emergency department by private transportation the care of his for evaluation of right-sided nosebleed. Patient states symptoms again around 6:20 PM. Symptoms began spontaneously. Patient states since onset he is been applying direct pressure. Patient states bleeding has dissipated significantly while waiting to be seen. Patient denies history of hypertension and takes no blood thinning agents. Patient does have history of cerebral aneurysm that underwent clipping August 2016 she has. Patient is followed on a regular basis by his neurologist at [facility]. Patient's on no seizure medications. Patient does not report headache. Patient was seen earlier today for diagnosis of left-sided dental abscess and started on prescriptions for penicillin and ibuprofen. Patient denies other symptoms or complaints. No recent foreign fever sinus pressure drainage or sinus headache. Patient reports current pain as 0/10 in intensity. PFSH Past Medical History Narrative Medical Cerebral aneurysm status post clipping 09/15 shoulder surgery migraine; tobacco use alcohol use; family history cerebral aneurysm-sister; nursing notes reviewed Cerebrovascular Accident: Yes (stroke, aneurysm) Diminished Hearing: No Headaches: Yes Musculoskeletal: Yes (hx right shoulder surgery) Neurologic: Yes Migraines: Yes Tetanus Vaccination: Unknown Influenza Vaccination: No Past Surgical History Abdominal Surgery: No Cardiac Surgery: No Ear Surgery: No Endocrine Surgery: No Eye Surgery: No Genitourinary Surgery: No Neurologic Surgery: Yes (craniotomy in aug 2016 after 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) Oral Surgery: No Thoracic Surgery: No Social History Alcohol Use: Yes (Occ.) Tobacco Use: Yes (1 PPD) Substance Use: No Allergies-Medications (Allergen,Severity, Reaction): Coded Allergies: No Known Allergies (Unverified , 05/15/17) Reported Meds & Prescriptions Reported Meds & Active Scripts Active Penicillin V Potassium 500 Mg Tab 500 Mg PO Q6H 10 Days Ibuprofen 600 Mg Tab 600 Mg PO Q6H PRN Review of Systems Except as stated in HPI: all other systems reviewed are Neg General / Constitutional: No: Fever HENT: Positive: Nosebleed, Dental Difficulties (diagnosed earlier with dental abscess), No: Headaches, Congestion Cardiovascular: No: Chest Pain or Discomfort Respiratory: No: Shortness of Breath Gastrointestinal: No: Vomiting Musculoskeletal: No: Pain Skin: No Rash Neurologic: No: Weakness Psychiatric: No: Anxiety Hematologic/Lymphatic: No: Easy Bruising Physical Exam Narrative GENERAL: Well-developed well-nourished male in no acute distress no respiratory distress; GCS 15; triage vital signs and normal range SKIN: Warm and dry. HEAD: Normocephalic. EYES: No scleral icterus. No injection or drainage. ENT: Mucous membranes moist no active posterior pharyngeal bleeding; left naris clear right naris trace blood-tinged mucus no clots no active bleeding. NECK: Supple, trachea midline. No JVD or lymphadenopathy. CARDIOVASCULAR: Regular rate and rhythm without murmurs, gallops, or rubs. RESPIRATORY: Breath sounds equal bilaterally. No accessory muscle use. GASTROINTESTINAL: Abdomen soft, non-tender, nondistended. MUSCULOSKELETAL: No cyanosis, or edema. BACK: Nontender without obvious deformity. No CVA tenderness. Data Data Last Documented VS Vital Signs Date Time Temp Pulse Resp B/P (MAP) Pulse Ox O2 Delivery O2 Flow Rate FiO2 05/15/17 19:24 115/68 (84) 05/15/17 18:52 98.6 86 16 97 MDM Medical Decision Making Medical Screen Exam Complete: Yes Emergency Medical Condition: Yes Medical Record Reviewed: Yes Differential Diagnosis Epistaxis, sinusitis, localized trauma, hypertension, anemia, coagulopathy Narrative Course 1928 PM patient remains without active epistaxis and normal range blood pressure It is 20:00 patient remains asymptomatic without recurrent epistaxis and remains with stable vital signs and taking oral hydration well. The patient is stable for outpatient management. Patient is encouraged to complete course of antibiotic as earlier prescribed for dental abscess. Patient is encouraged to return to the emergency department for any concerns. Diagnosis Primary Impression: Epistaxis Referrals: Ear / Nose / Throat Specialist as needed Patient Instructions: General Instructions Additional Instructions: Increase fluid hydration Return to the emergency department for any concerns or change in condition Complete course of antibiotic as previously prescribed Recommend avoiding use of ibuprofen the next 12-24 hours then may attempt ibuprofen usage subsequently as needed for pain greater than 5/10 intensity; the interim use acetaminophen Monitor temperature every 4 hours with thermometer for fever 100.4F or greater take acetaminophen/Tylenol as often as every 4-6 hours per package directions Follow-up with your primary care provider Follow-up with dentist as previously recommended. Follow-up with research and development manager for recurrent or frequent nosebleeds. Disposition: 01 DISCHARGE HOME Condition: Stable Cathy Miramontes MD May 15, 2017 19:27
[2017-05-15 19:52] VITALS: BP_SYST 119; BP_SYST 123; BP_DIAS 69; BP_DIAS 77; PULSE 85; O2SAT 98
== END 2017-05-15 20:15 | disposition home or self-care (01) ==
LOC: PHED 18:36
DX: R04.0 Epistaxis (principal); Z86.73 Personal history of transient ischemic attack (TIA), and cerebral infarction without residual deficits; G43.909 Migraine, unspecified, not intractable, without status migrainosus; F17.200 Nicotine dependence, unspecified, uncomplicated
CPT/HCPCS: 99282

== ENCOUNTER 2017-09-09 13:31 | Emergency (ER) | payer OTHER ==
[~2017-09-09] VITALS: Ht 182.9 cm; Wt 86.9 kg
[~2017-09-09 13:31] MED LIST changes: -HYDR-3533 PO
[2017-09-09 13:38] VITALS: BP 130/78; PULSE 102; RESP 16; TEMP 99; O2SAT 97
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
[2017-09-09 14:38] VITALS: BP 128/77; PULSE 90; RESP 18; O2SAT 98
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
[2017-09-09] MEDS ORDERED: ROBA750T PO (15:08)
== END 2017-09-09 15:17 | disposition home or self-care (01) ==
LOC: PHEFT 13:31
DX: S09.90XA Unspecified injury of head, initial encounter (principal); F17.210 Nicotine dependence, cigarettes, uncomplicated; M62.838 Other muscle spasm; V49.59XA Passenger injured in collision with other motor vehicles in traffic accident, initial encounter; Y92.410 Unspecified street and highway as the place of occurrence of the external cause; Z98.890 Other specified postprocedural states; Z88.0 Allergy status to penicillin; Z86.79 Personal history of other diseases of the circulatory system
CPT/HCPCS: 70450; 99283

== ENCOUNTER 2018-06-27 18:51 | Observation (INO) ==
[2018-06-27] MEDS ORDERED: Sod Chloride 0.9% Inj 1,000 ML IV.CONT SCH (19:00)
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
--- NOTE | 2018-06-27 19:32 | ED ---
HPI General Chief Complaint: Stroke Alert Stated Complaint: headache/neck pain /trouble talking Time Seen by Provider: 06/27/18 19:14 History of Present Illness HPI Narrative: pt is a 42 yr old male with hx of bleeding NEURYSM 1 yr ago with craniotomy , today at 2:30 4 hrs prior to presentation developed a severe headache , he has history of migraines , HEADACHE PRESSURE LIKE FRONTAL AREA OF SKULL , PT takes Ibuprofen only without relief , noticed halted speech, He does sometimes get neurologic symptoms from migraines in the past ever since his craniotomy last year , neurologic in [facility] told him that his new difficult neurologic sx with migraine is probably due to post craniotomy . Currently pt has no focal deficits , he has also history of right leg drop foot from prior back issues , on initial eval NIH stroke is 3 (including limb weakness from known foot drop )from prior spine peripheral issues. Patient denies trauma patient denies head injury of any kind patient has no focal deficits his main complaint was severe headache and when his arrived she thought he was speaking slightly slower that is the only complaint prior activated a stroke alert CAT scan is done there is no change radiologist calls me reports there is an old craniotomy but no new findings. CTA head and neck is done protocol possibly this is a migraine with residual neurological defect otherwise at this time it does not appear to be a vascular accident or a ischemic event Related Data Home Medications Medication Instructions Recorded Confirmed cholecalciferol (vitamin D3) 400 unit PO DAILY 06/27/18 06/27/18 [Vitamin D3] ibuprofen 800 mg PO TID PRN 06/27/18 06/27/18 multivitamin 1 tab PO DAILY 06/27/18 06/27/18 Previous Rx's Medication Instructions Recorded divalproex 500 mg PO HS 30 Days #30 tab NS 06/29/18 Allergies Allergy/AdvReac Type Severity Reaction Status Date / Time Penicillins Allergy Unknown NOSEBLEED Verified 06/27/18 23:24 Review of Systems ROS: all other systems reviewed are negative [facility] Medical History Medical History Migraine (Acute) Brain aneurysm (Acute) Foot drop (Acute) Hemorrhagic stroke (Acute) Spinal stenosis (Acute) Surgical History Surgical History History of shoulder surgery (Acute) H/O craniotomy (Acute) Social History Social History Substance History: No History of Abuse Second Hand Smoke Exposure: No Smoking Status: Current some day smoker Tobacco Type: Cigarettes How Often Do You Have a Drink Containing Alcohol: Monthly or less Recent Travel in [facility] within the Last 8 Weeks: No Recent Out of Country Travel within the Last 8 Weeks: No Exam Narrative Exam Narrative: GENERAL: awake alert and no obvious focal deficit, slow to speeak normal production of speech SKIN: Warm and dry. HEAD: Atraumatic. Normocephalic. EYES: Pupils equal and round. No scleral icterus. No injection or drainage. EOMI ENT: No nasal bleeding or discharge. Mucous membranes pink and moist. no tongue deviation NECK: Trachea midline. No JVD. CARDIOVASCULAR: Regular rate and rhythm. RESPIRATORY: No accessory muscle use. Clear to auscultation. Breath sounds equal bilaterally. GASTROINTESTINAL: Abdomen soft, non-tender, nondistended. Hepatic and splenic margins not palpable. MUSCULOSKELETAL: Extremities without clubbing, cyanosis, or edema. No obvious deformities. NEUROLOGICAL: Awake and alert. No obvious cranial nerve deficits. Right leg weaker against gravity and lifting against my pushing on leg( prior leg foot drop known nochange ) . Five out of 5 muscle strength in the arms Normal production of speech. slightly slower to speech. comprehension intact . sensory intact NIHSS 3 including 2 points for -->leg drop chronic PSYCHIATRIC: Appropriate mood and affect; insight and judgment normal. Course Initial Documented Vital Signs Temperature 98.4 F 06/27/18 19:00 Pulse Rate 88 06/27/18 19:00 Respiratory Rate 18 06/27/18 19:00 Blood Pressure 155/81 H 06/27/18 19:00 Pulse Oximetry 98 06/27/18 19:00 Last Documented Vital Signs Temperature 96.9 F L 06/29/18 08:00 Pulse Rate 64 06/29/18 08:00 Respiratory Rate 20 06/29/18 09:38 Blood Pressure 107/64 06/29/18 08:00 Pulse Oximetry 99 06/29/18 08:00 NIH Stroke Scale NIH Stroke Scale Level of Consciousness: 0-Alert Orientation Questions: 0-Answers both correct Responds to Commands: 0-Both tasks correct Gaze Eye Movement: 0-Horizontal movement WNL Visual Gary: 0-No visual field defect Facial Movement: 0-Normal Motor Functions Arm LEFT: 0-No drift Motor Functions Arm RIGHT: 0-No drift Motor Functions Leg LEFT: 0-No drift Motor Functions Leg RIGHT: 2-Falls before 5 seconds (caveat is prior drop foot chronic from back radicuolpathu) Limb Ataxia: 0-No ataxia Sensory Loss: 0-No sensory loss Best Language: 1-Mild aphasia Articulation: 0-Normal Extinction or Inattention Sensory: 0-Absent Total: 3 Medical Decision Making MDM Narrative Medical decision making narrative: CT findings no change from prior CT with the aneurysm clip in the right craniotomy seen CTA head and neck no acute findings. Patient's labs within normal limits patient is treated with Zofran for nausea Reglan and morphine for headache and will be re-eval at this time I do not feel there is any focal deficit NIH scale will be 1 mild aphasia and the mild foot drop is a chronic problem from prior back problems.. aFTER ALL STUDIES ARE NORMAL NO CHANGE FROM LAST YEAR , ct SHOWS RIGHT CRANIOTOMY , PT FEELS NERVOUS TO GO HOME , pT FEELS BETTER AFTER REGALN AND MORPHINE AND WANTS TO GO HOME ,i DECIDE TO ADMOIT FOR CONSULT NEUROLOGY IN AM DUE TO PRIOR ANEURYSMAL BLEED .. pt shuld be seen by neurology and observation to assure no recurrence of aphasia return will admit for observation Medical Screen Exam Complete: Yes Emergency Medical Condition: Yes Differential Diagnosis Differential Diagnosis: DdX cva HEMORRHAGIC VS ISCHEMIC VS MIGRAINE WITH NEUROLOGIC EFFECT VS OTHER YINKA PARALYSIS , CHRONIC FOOT DROP OTHER Lab Data Result diagrams: 06/27/18 19:05 06/27/18 19:05 Lab Results 06/27/18 06/27/18 06/27/18 Range/Units 19:05 19:05 19:05 CBC w Diff Auto diff final WBC 8.1 (4.0-11.0) th/mm3 RBC 5.04 (4.50-5.90) mil/mm3 Hgb 15.9 (13.0-17.0) gm/dL Hct 48.6 (39.0-51.0) % MCV 96.5 (80.0-100.0) fL MCH 31.5 (27.0-34.0) pg MCHC 32.6 (32.0-36.0) % RDW 13.1 (11.6-17.2) % Plt Count 233 (150-450) th/mm3 MPV 9.3 (7.0-11.0) fL Neut % (Auto) 61.8 (16.0-70.0) % Lymph % (Auto) 29.6 (9.0-44.0) % [place] % (Auto) 5.3 (0.0-8.0) % Eos % (Auto) 2.6 (0.0-4.0) % Baso % (Auto) 0.7 (0.0-2.0) % Neut # (Auto) 5.0 (1.8-7.7) th/mm3 Lymph # (Auto) 2.4 (1.0-4.8) th/mm3 [place] # (Auto) 0.4 (0.0-0.9) th/mm3 Eos # (Auto) 0.2 (0.0-0.4) th/mm3 Baso # (Auto) 0.1 (0.0-0.2) th/mm3 WBC Differential . Differential Comment . PT 10.4 (9.8-11.6) sec INR 1.0 Ratio Fibrinogen 241 (227-377) mg/dL Sodium (136-145) meq/L Potassium (3.5-5.1) meq/L Chloride (98-107) meq/L Carbon Dioxide (21.0-32.0) meq/L Anion Gap (5-15) meq/L BUN (7-18) mg/dL Creatinine (0.60-1.30) mg/dL Estimated GFR (>89) mL/min POC Glucose (68-110) mg/dl Random Glucose (74-106) mg/dL Hemoglobin A1c (4.3-6.0) % Calcium (8.5-10.1) mg/dL Total Bilirubin (0.2-1.0) mg/dL AST (15-37) U/L ALT (12-78) U/L Alkaline Phosphatase (45-117) U/L Total Protein (6.4-8.2) g/dL Albumin (3.4-5.0) g/dL Triglycerides (42-150) mg/dL Cholesterol (120-200) mg/dL LDL Cholesterol, Calc (0-99) mg/dL HDL Cholesterol (40.0-60.0) mg/dL Cholesterol/HDL Ratio Ratio Lipase (73-393) U/L Urine Color (Yellw/Straw) Urine Clarity (Clear) Urine pH (5.0-8.5) Ur Specific [place] (1.002-1.035) Urine Protein (Neg-Trace) mg/dL Urine Glucose (UA) (Negative) mg/dL Urine Ketones (Negative) mg/dL Urine Occult Blood (Negative) Urine Nitrate (Negative) Urine Bilirubin (Negative) Urine Urobilinogen (Less than 2) mg/dL Ur Leukocyte Esterase (Negative) Ur Squamous Epith Cells (0-5) /hpf Micro UA Comment Ur Microscopic Review Urine Culture Comments Urine Opiates Screen (Neg) Ur Barbiturates Screen (Neg) Ur Amphetamines Screen (Neg) U Benzodiazepines Scrn (Neg) Urine Cocaine Screen (Neg) U Cannabinoids Screen (Neg) Blood Type O Positive Antibody Screen Negative 06/27/18 06/27/18 06/27/18 Range/Units 19:05 21:52 21:52 CBC w Diff WBC (4.0-11.0) th/mm3 RBC (4.50-5.90) mil/mm3 Hgb (13.0-17.0) gm/dL Hct (39.0-51.0) % MCV (80.0-100.0) fL MCH (27.0-34.0) pg MCHC (32.0-36.0) % RDW (11.6-17.2) % Plt Count (150-450) th/mm3 MPV (7.0-11.0) fL Neut % (Auto) (16.0-70.0) % Lymph % (Auto) (9.0-44.0) % [place] % (Auto) (0.0-8.0) % Eos % (Auto) (0.0-4.0) % Baso % (Auto) (0.0-2.0) % Neut # (Auto) (1.8-7.7) th/mm3 Lymph # (Auto) (1.0-4.8) th/mm3 [place] # (Auto) (0.0-0.9) th/mm3 Eos # (Auto) (0.0-0.4) th/mm3 Baso # (Auto) (0.0-0.2) th/mm3 WBC Differential Differential Comment PT (9.8-11.6) sec INR Ratio Fibrinogen (227-377) mg/dL Sodium 146 H (136-145) meq/L Potassium 4.0 (3.5-5.1) meq/L Chloride 112 H (98-107) meq/L Carbon Dioxide 26.0 (21.0-32.0) meq/L Anion Gap 8 (5-15) meq/L BUN 16 (7-18) mg/dL Creatinine 1.10 (0.60-1.30) mg/dL Estimated GFR 74 L (>89) mL/min POC Glucose (68-110) mg/dl Random Glucose 106 (74-106) mg/dL Hemoglobin A1c (4.3-6.0) % Calcium 8.3 L (8.5-10.1) mg/dL Total Bilirubin 0.2 (0.2-1.0) mg/dL AST 15 (15-37) U/L ALT 25 (12-78) U/L Alkaline Phosphatase 82 (45-117) U/L Total Protein 7.3 (6.4-8.2) g/dL Albumin 3.9 (3.4-5.0) g/dL Triglycerides (42-150) mg/dL Cholesterol (120-200) mg/dL LDL Cholesterol, Calc (0-99) mg/dL HDL Cholesterol (40.0-60.0) mg/dL Cholesterol/HDL Ratio Ratio Lipase 100 (73-393) U/L Urine Color Yellow (Yellw/Straw) Urine Clarity Clear (Clear) Urine pH 7.0 (5.0-8.5) Ur Specific Odell 1.010 (1.002-1.035) Urine Protein Trace (Neg-Trace) mg/dL Urine Glucose (UA) Negative (Negative) mg/dL Urine Ketones Negative (Negative) mg/dL Urine Occult Blood Negative (Negative) Urine Nitrate Negative (Negative) Urine Bilirubin Negative (Negative) Urine Urobilinogen 0.2 (Less than 2) mg/dL Ur Leukocyte Esterase Negative (Negative) Ur Squamous Epith Cells 0-5 (0-5) /hpf Micro UA Comment Culture not ind Ur Microscopic Review Microscopic reviewed Urine Culture Comments Culture not ind Urine Opiates Screen Pos H (Neg) Ur Barbiturates Screen Neg (Neg) Ur Amphetamines Screen Neg (Neg) U Benzodiazepines Scrn Neg (Neg) Urine Cocaine Screen Neg (Neg) U Cannabinoids Screen Neg (Neg) Blood Type Antibody Screen 06/28/18 06/28/18 06/28/18 Range/Units 02:48 07:57 11:12 CBC w Diff WBC (4.0-11.0) th/mm3 RBC (4.50-5.90) mil/mm3 Hgb (13.0-17.0) gm/dL Hct (39.0-51.0) % MCV (80.0-100.0) fL MCH (27.0-34.0) pg MCHC (32.0-36.0) % RDW (11.6-17.2) % Plt Count (150-450) th/mm3 MPV (7.0-11.0) fL Neut % (Auto) (16.0-70.0) % Lymph % (Auto) (9.0-44.0) % [place] % (Auto) (0.0-8.0) % Eos % (Auto) (0.0-4.0) % Baso % (Auto) (0.0-2.0) % Neut # (Auto) (1.8-7.7) th/mm3 Lymph # (Auto) (1.0-4.8) th/mm3 [place] # (Auto) (0.0-0.9) th/mm3 Eos # (Auto) (0.0-0.4) th/mm3 Baso # (Auto) (0.0-0.2) th/mm3 WBC Differential Differential Comment PT (9.8-11.6) sec INR Ratio Fibrinogen (227-377) mg/dL Sodium (136-145) meq/L Potassium (3.5-5.1) meq/L Chloride (98-107) meq/L Carbon Dioxide (21.0-32.0) meq/L Anion Gap (5-15) meq/L BUN (7-18) mg/dL Creatinine (0.60-1.30) mg/dL Estimated GFR (>89) mL/min POC Glucose 128 H 100 111 H (68-110) mg/dl Random Glucose (74-106) mg/dL Hemoglobin A1c (4.3-6.0) % Calcium (8.5-10.1) mg/dL Total Bilirubin (0.2-1.0) mg/dL AST (15-37) U/L ALT (12-78) U/L Alkaline Phosphatase (45-117) U/L Total Protein (6.4-8.2) g/dL Albumin (3.4-5.0) g/dL Triglycerides (42-150) mg/dL Cholesterol (120-200) mg/dL LDL Cholesterol, Calc (0-99) mg/dL HDL Cholesterol (40.0-60.0) mg/dL Cholesterol/HDL Ratio Ratio Lipase (73-393) U/L Urine Color (Yellw/Straw) Urine Clarity (Clear) Urine pH (5.0-8.5) Ur Specific [place] (1.002-1.035) Urine Protein (Neg-Trace) mg/dL Urine Glucose (UA) (Negative) mg/dL Urine Ketones (Negative) mg/dL Urine Occult Blood (Negative) Urine Nitrate (Negative) Urine Bilirubin (Negative) Urine Urobilinogen (Less than 2) mg/dL Ur Leukocyte Esterase (Negative) Ur Squamous Epith Cells (0-5) /hpf Micro UA Comment Ur Microscopic Review Urine Culture Comments Urine Opiates Screen (Neg) Ur Barbiturates Screen (Neg) Ur Amphetamines Screen (Neg) U Benzodiazepines Scrn (Neg) Urine Cocaine Screen (Neg) U Cannabinoids Screen (Neg) Blood Type Antibody Screen 06/28/18 06/28/18 06/29/18 Range/Units 17:01 21:40 06:25 CBC w Diff WBC (4.0-11.0) th/mm3 RBC (4.50-5.90) mil/mm3 Hgb (13.0-17.0) gm/dL Hct (39.0-51.0) % MCV (80.0-100.0) fL MCH (27.0-34.0) pg MCHC (32.0-36.0) % RDW (11.6-17.2) % Plt Count (150-450) th/mm3 MPV (7.0-11.0) fL Neut % (Auto) (16.0-70.0) % Lymph % (Auto) (9.0-44.0) % [place] % (Auto) (0.0-8.0) % Eos % (Auto) (0.0-4.0) % Baso % (Auto) (0.0-2.0) % Neut # (Auto) (1.8-7.7) th/mm3 Lymph # (Auto) (1.0-4.8) th/mm3 [place] # (Auto) (0.0-0.9) th/mm3 Eos # (Auto) (0.0-0.4) th/mm3 Baso # (Auto) (0.0-0.2) th/mm3 WBC Differential Differential Comment PT (9.8-11.6) sec INR Ratio Fibrinogen (227-377) mg/dL Sodium (136-145) meq/L Potassium (3.5-5.1) meq/L Chloride (98-107) meq/L Carbon Dioxide (21.0-32.0) meq/L Anion Gap (5-15) meq/L BUN (7-18) mg/dL Creatinine (0.60-1.30) mg/dL Estimated GFR (>89) mL/min POC Glucose 141 H 113 H (68-110) mg/dl Random Glucose (74-106) mg/dL Hemoglobin A1c 5.4 (4.3-6.0) % Calcium (8.5-10.1) mg/dL Total Bilirubin (0.2-1.0) mg/dL AST (15-37) U/L ALT (12-78) U/L Alkaline Phosphatase (45-117) U/L Total Protein (6.4-8.2) g/dL Albumin (3.4-5.0) g/dL Triglycerides (42-150) mg/dL Cholesterol (120-200) mg/dL LDL Cholesterol, Calc (0-99) mg/dL HDL Cholesterol (40.0-60.0) mg/dL Cholesterol/HDL Ratio Ratio Lipase (73-393) U/L Urine Color (Yellw/Straw) Urine Clarity (Clear) Urine pH (5.0-8.5) Ur Specific [place] (1.002-1.035) Urine Protein (Neg-Trace) mg/dL Urine Glucose (UA) (Negative) mg/dL Urine Ketones (Negative) mg/dL Urine Occult Blood (Negative) Urine Nitrate (Negative) Urine Bilirubin (Negative) Urine Urobilinogen (Less than 2) mg/dL Ur Leukocyte Esterase (Negative) Ur Squamous Epith Cells (0-5) /hpf Micro UA Comment Ur Microscopic Review Urine Culture Comments Urine Opiates Screen (Neg) Ur Barbiturates Screen (Neg) Ur Amphetamines Screen (Neg) U Benzodiazepines Scrn (Neg) Urine Cocaine Screen (Neg) U Cannabinoids Screen (Neg) Blood Type Antibody Screen 06/29/18 Range/Units 06:25 CBC w Diff WBC (4.0-11.0) th/mm3 RBC (4.50-5.90) mil/mm3 Hgb (13.0-17.0) gm/dL Hct (39.0-51.0) % MCV (80.0-100.0) fL MCH (27.0-34.0) pg MCHC (32.0-36.0) % RDW (11.6-17.2) % Plt Count (150-450) th/mm3 MPV (7.0-11.0) fL Neut % (Auto) (16.0-70.0) % Lymph % (Auto) (9.0-44.0) % [place] % (Auto) (0.0-8.0) % Eos % (Auto) (0.0-4.0) % Baso % (Auto) (0.0-2.0) % Neut # (Auto) (1.8-7.7) th/mm3 Lymph # (Auto) (1.0-4.8) th/mm3 [place] # (Auto) (0.0-0.9) th/mm3 Eos # (Auto) (0.0-0.4) th/mm3 Baso # (Auto) (0.0-0.2) th/mm3 WBC Differential Differential Comment PT (9.8-11.6) sec INR Ratio Fibrinogen (227-377) mg/dL Sodium (136-145) meq/L Potassium (3.5-5.1) meq/L Chloride (98-107) meq/L Carbon Dioxide (21.0-32.0) meq/L Anion Gap (5-15) meq/L BUN (7-18) mg/dL Creatinine (0.60-1.30) mg/dL Estimated GFR (>89) mL/min POC Glucose (68-110) mg/dl Random Glucose (74-106) mg/dL Hemoglobin A1c (4.3-6.0) % Calcium (8.5-10.1) mg/dL Total Bilirubin (0.2-1.0) mg/dL AST (15-37) U/L ALT (12-78) U/L Alkaline Phosphatase (45-117) U/L Total Protein (6.4-8.2) g/dL Albumin (3.4-5.0) g/dL Triglycerides 163 H (42-150) mg/dL Cholesterol 154 (120-200) mg/dL LDL Cholesterol, Calc 86 (0-99) mg/dL HDL Cholesterol 35.6 L (40.0-60.0) mg/dL Cholesterol/HDL Ratio 4.32 Ratio Lipase (73-393) U/L Urine Color (Yellw/Straw) Urine Clarity (Clear) Urine pH (5.0-8.5) Ur Specific [place] (1.002-1.035) Urine Protein (Neg-Trace) mg/dL Urine Glucose (UA) (Negative) mg/dL Urine Ketones (Negative) mg/dL Urine Occult Blood (Negative) Urine Nitrate (Negative) Urine Bilirubin (Negative) Urine Urobilinogen (Less than 2) mg/dL Ur Leukocyte Esterase (Negative) Ur Squamous Epith Cells (0-5) /hpf Micro UA Comment Ur Microscopic Review Urine Culture Comments Urine Opiates Screen (Neg) Ur Barbiturates Screen (Neg) Ur Amphetamines Screen (Neg) U Benzodiazepines Scrn (Neg) Urine Cocaine Screen (Neg) U Cannabinoids Screen (Neg) Blood Type Antibody Screen Imaging Data Radiologist's impression: Chest X-Ray 06/27/18 18:59 CONCLUSION: Negative examination. Head CT 06/27/18 18:59 CONCLUSION: 1. Stable appearance status post craniotomy and aneurysm clipping. 2. No acute hemorrhage or mass effect. Report was called by [ Dr Luna to Dr. Hduson at 1917 hours. ] Head CTA 06/27/18 18:59 CONCLUSION: 1. No occlusive disease identified on CTA head. Previous aneurysm clipping on the right with right craniotomy. Report was called by [ Dr. Mckeon to Dr. Valero at 7:45 PM.] Neck CTA 06/27/18 18:59 CONCLUSION: 1. Minimal plaque formation without carotid stenosis. Head MRI 06/28/18 00:00 CONCLUSION: 1. No acute abnormality is seen. 2. MR compatible aneurysm clip in the right suprasellar cistern region. 3. 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 4. Old lacunar infarct at the right internal capsule. Discharge Plan Discharge Disposition Patient Disposition: 30 Still Patient Discharge Condition Condition: Stable Discharge Order Discharge Orders: Discharge Order (Routine); Ordered 06/29/18 Ordered By: Eduar Ceron Discharge Details Anticipated Discharge Date: 06/29/18 Discharge Comment: Patient should follow up PMD within 7 days. Continue with Depakote 500mg at bedtime. Physicians Team ED Provider: Dontrell Hudson Primary Care Provider: Ken George Attending Provider: Eduar Ceron Other Providers: Molly Calderon Status ED Status: Left Department Discharge Information Discharge Date/Time: 06/28/18 02:20
[2018-06-27] MEDS ORDERED: Metoclopramide Inj 10 MG in Sodium Chlor 0.9% Inj 50 ML IV.SIG ONE (19:33)
[2018-06-27] MEDS ORDERED: Morphine Inj 4 MG/ML Vial IV.PUSH ONE (19:33)
[2018-06-27 19:34] LABS: Baso # (Auto) 0.1 th/mm3 (0.0-0.2); Baso % (Auto) 0.7 % (0.0-2.0); Eos # (Auto) 0.2 th/mm3 (0.0-0.4); Eos % (Auto) 2.6 % (0.0-4.0); Hematocrit 48.6 % (39.0-51.0); Hemoglobin 15.9 gm/dL (13.0-17.0); Lymph # (Auto) 2.4 th/mm3 (1.0-4.8); Lymph % (Auto) 29.6 % (9.0-44.0); Mean Corpuscular HGB Conc 32.6 % (32.0-36.0); Mean Corpuscular Hemoglobin 31.5 pg (27.0-34.0); Mean Corpuscular Volume 96.5 fL (80.0-100.0); Mean Platelet Volume 9.3 fL (7.0-11.0); Mono # (Auto) 0.4 th/mm3 (0.0-0.9); Mono % (Auto) 5.3 % (0.0-8.0); Neut % (Auto) 61.8 % (16.0-70.0); Platelet Count 233 th/mm3 (150-450); Red Blood Count 5.04 mil/mm3 (4.50-5.90); Red Cell Distribution Width 13.1 % (11.6-17.2); White Blood Count 8.1 th/mm3 (4.0-11.0)
[2018-06-27 19:42] LABS: Chloride 112 meq/L (98-107); Sodium 146 meq/L (136-145)
[2018-06-27 19:45] LABS: Prothrombin Time 10.4 sec (9.8-11.6)
[2018-06-27 19:46] LABS: Calcium 8.3 mg/dL (8.5-10.1)
[2018-06-27 19:47] LABS: Albumin 3.9 g/dL (3.4-5.0); Anion Gap 8 meq/L (5-15); Blood Urea Nitrogen 16 mg/dL (7-18); Glucose,Random 106 mg/dL (74-106); Lipase 100 U/L (73-393)
--- NOTE | 2018-06-27 19:48 | CT ---
EXAM DATE: 06/27/2018 7:34 PM EST AGE/SEX: 42 years / Male INDICATIONS: Stroke alert. Slurred speech. Cephalgia. CLINICAL DATA: This is the patient's initial encounter. Patient reports that signs and symptoms have been present for 1 day and indicates a pain score of 8/10. MEDICAL/SURGICAL HISTORY: Aneurysm, intracranial. Stroke. Craniotomy. RADIATION DOSE: 42.28 CTDI (mGy) ; Combined studies COMPARISON: No prior exams available for comparison. TECHNIQUE: Volumetric scanning was performed using a multi-row detector CT scanner during bolus infu param of 100 ml Visipaque 320 (iodixanol) nonionic water-soluble contrast as a cumulative dose for mu ltiple exams. The data was post processed with a variety of visualization algorithms including full volume maximum intensity projection, multi-planar sliding thin slab reformation, curved planar refor mation, and surface rendering techniques. Using automated exposure control and adjustment of the mA and/or kV according to patient size, radiation dose was kept as low as reasonably achievable to obtai n optimal diagnostic quality images. DICOM format image data is available electronically for review and comparison. FINDINGS: There is previous aneurysm clipping on the right side. No residual aneurysm is identified. No occlusi ve disease is identified in the anterior, middle and posterior cerebral arteries. Basilar artery is p atent. CONCLUSION: 1. No occlusive disease identified on CTA head. Previous aneurysm clipping on the right with right c raniotomy. Report was called by [ Dr. Mckeon to Dr. Valero at 7:45 PM.] Electronically signed by: Zackary Mkceon MD 06/27/2018 7:47 PM EST
[2018-06-27 19:50] LABS: Alanine Aminotransferase 25 U/L (12-78); Aspartate Aminotransferase 15 U/L (15-37); Glomerular Filtration Rate 74 mL/min (>89)
[2018-06-27 19:52] LABS: Total Protein 7.3 g/dL (6.4-8.2)
[2018-06-27 19:53] LABS: Alkaline Phosphatase 82 U/L (45-117)
--- NOTE | 2018-06-27 19:57 | XR ---
EXAM DATE: 06/27/2018 7:38 PM EST AGE/SEX: 42 years / Male INDICATIONS: Stroke alert. CLINICAL DATA: This is the patient's initial encounter. Patient reports that signs and symptoms have been present for 1 day and indicates a pain score of 0/10. MEDICAL/SURGICAL HISTORY: . Aneurysm, intracranial. Stroke. . Craniotomy COMPARISON: No prior exams available for comparison. FINDINGS: A single AP view of the chest demonstrates the lungs to be symmetrically aerated without evidence of mass, infiltrate or effusion. The cardiomediastinal contours are unremarkable. Osseous structures a re intact. CONCLUSION: Negative examination. Electronically signed by: Zackary Mckeon MD 06/27/2018 7:56 PM EST
[2018-06-27] MEDS ORDERED: Famotidine PF Inj 20 MG/2 ML Vial IV.PUSH ONE (20:13)
--- NOTE | 2018-06-27 20:15 | CT ---
EXAM DATE: 06/27/2018 7:41 PM EST AGE/SEX: 42 years / Male INDICATIONS: Stroke alert. Slurred speech. Cephalgia. CLINICAL DATA: This is the patient's initial encounter. Patient reports that signs and symptoms have been present for 1 day and indicates a pain score of 8/10. MEDICAL/SURGICAL HISTORY: Aneurysm, intracranial. Stroke. Craniotomy. Aneurysm clips. RADIATION DOSE: 42.28 CTDI (mGy) ; Combined studies COMPARISON: No prior exams available for comparison. TECHNIQUE: Volumetric scanning was performed using a multirow detector CT scanner during bolus infus ion of 100 ml Visipaque 320 (iodixanol) nonionic water-soluble contrast as a cumulative dose for mul tiple exams. The data was postprocessed with a variety of visualization algorithms including full-v olume maximum intensity projection, multiplanar sliding thin-slab reformation, curved-planar reformat ion, and surface-rendering techniques. Using automated exposure control and adjustment of the mA and /or kV according to patient size, radiation dose was kept as low as reasonably achievable to obtain o ptimal diagnostic quality images. DICOM format image data is available electronically for review and comparison. Percent stenosis is calculated using the diameter of the stenotic region over the diameter of the nor mal distal internal carotid artery. FINDINGS: Great vessel origins are patent. Both common carotid and internal carotid arteries are patent. Mild p laque formation at both carotid bifurcations. No stenosis. CONCLUSION: 1. Minimal plaque formation without carotid stenosis. Electronically signed by: Zackary Mckeon MD 06/27/2018 8:13 PM EST
[2018-06-27 22:01] LABS: Bilirubin,Urine Negative (Negative); Clarity,Urine Clear (Clear); Color,Urine Yellow (Yellw/Straw); Glucose,Urine (UA) Negative (Negative); Leukocyte Esterase,Urine Negative (Negative); Nitrite,Urine Negative (Negative); Urobilinogen,Urine 0.2 mg/dL (Less than 2)
[2018-06-27 22:07] LABS: Squamous Epithelial Cell,Urine 0-5 /hpf (0-5)
[2018-06-27 22:29] LABS: Amphetamine Screen,Urine Neg (Neg); Barbiturate Screen,Urine Neg (Neg)
[2018-06-27 22:31] LABS: Cannabinoid Screen,Urine Neg (Neg)
[2018-06-27 22:33] LABS: Cocaine Screen,Urine Neg (Neg)
[2018-06-27 22:36] LABS: Opiate Screen,Urine Pos (Neg)
[2018-06-28] MEDS ORDERED: Dextrose 50% in Water 50 ML Vial IV.PUSH PRN (01:37)
[2018-06-28] MEDS ORDERED: Sod Chloride 0.9% Inj 1,000 ML IV.CONT SCH (01:45)
[2018-06-28] MEDS: Heparin - SQ 10,000 UNITS/ML Vial SQ SCH ×3 (02:35→17:37)
[2018-06-28] MEDS: Insulin NovoLOG Aspart Correctional Sugar Inj SQ SCH ×5 (02:54→21:42)
[2018-06-28] MEDS: Aspirin 325 MG Tablet PO SCH (09:06)
--- NOTE | 2018-06-28 09:58 | P.HPIM ---
History of Present Illness Primary Care Physician: Ken George DO Patient is a 42-year-old male with past medical history of brain aneurysm status post clipping complicated by hemorrhagic stroke presenting to emergency department with complaints of acute onset headache occurring one day prior to admission. Patient reports being in usual state of health prior he developed a sudden onset severe frontal, dull with occasional sharp periods of head pain while at home. History also obtained by present at bedside. Patient reports 1 year ago having a brain aneurysm and after having it clipped during a craniotomy was complicated by a CVA stroke. Patient reports that he has had headaches ever since his procedure but this 1 seemed more severe and prompted him to seek medical attention. Patient denied being on seizure medication after craniotomy. No prior history of seizures in the past. As per witness no episode of shaking, urinary incontinence, or tongue biting. For prior episodes of pain patient uses ibuprofen with improvement in symptoms. 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 Review of systems positive for episode of blurry vision, dizziness, and difficulty getting words out at certain moments. Patient does report having some nausea which is improved now and some light sensitivity as well. Patient denied loss of consciousness, palpitations, chest pain, shortness of breath, or worsening unilateral weakness in any part of his body above his general baseline. Patient also denied noticing any slurred speech. At the moment of evaluation on 06/28 at 9:45 AM patient reports that his symptoms have subsided and is doing better. Emergency department patient was evaluated and obtained a MRA of the head and neck which was negative for occlusive disease. Patient was also ordered for echo. Patient also ordered to obtain MRI brain to rule out acute process. Allergy: Seasonal, penicillin Social history: Patient is a current smoker of 1-2 cigarettes/day but is in the process of stopping. Patient occasionally drinks alcohol 1 drink per month. Patient lives with and is not using any illicit drugs. Family history: Mother and father both have history of high blood pressure and diabetes on both sides of the family. Medical history: Brain aneurysm, dropfoot, pinched nerve, stenosis in the back. Surgical history: Right shoulder and back surgery, brain aneurysm clipping. Medical medications. Multivitamin, supplements, ibuprofen (400-800mg) as needed , Robaxin, Zyrtec Diagnosis (1) Brain aneurysm: (2) Headache: (3) Blurry vision, bilateral: (4) Word finding difficulty: (5) History of hemorrhagic cerebrovascular accident (CVA) without residual deficits: Review of Systems Review of Systems: all other systems reviewed are negative [facility] Medical History Medical History Migraine (Acute) Brain aneurysm (Acute) Foot drop (Acute) Hemorrhagic stroke (Acute) Spinal stenosis (Acute) Surgical History Surgical History History of shoulder surgery (Acute) H/O craniotomy (Acute) Social History Social History Substance History: No History of Abuse Second Hand Smoke Exposure: No Smoking Status: Current some day smoker Tobacco Type: Cigarettes How Often Do You Have a Drink Containing Alcohol: Monthly or less Recent Travel in [facility] within the Last 8 Weeks: No Recent Out of Country Travel within the Last 8 Weeks: No Immunization History Tetanus Immunization: >5 Years Medications and Allergies Allergies Allergy/AdvReac Type Severity Reaction Status Date / Time Penicillins Allergy Unknown NOSEBLEED Verified 06/27/18 23:24 Home Medications Medication Instructions Recorded Confirmed Type cholecalciferol (vitamin D3) 400 unit PO DAILY 06/27/18 06/27/18 History [Vitamin D3] ibuprofen 800 mg PO TID PRN 06/27/18 06/27/18 History multivitamin 1 tab PO DAILY 06/27/18 06/27/18 History Active Medications: Active Medications Aspirin (Aspirin) 325 mg PO DAILY [facility] Last Admin: 06/28/18 09:06 Dose: 325 mg Dextrose (D50w Vial) 50 ml IV.PUSH UNSCH PRN PRN Reason: PER HYPOGLYCEMIA PROTOCOL Glucagon (Glucagon Inj) 1 mg OTHER PRN PRN PRN Reason: for Hypoglycemia Protocol Heparin Sodium (Porcine) (Heparin Inj) 5,000 units SQ Q8H RUBEN Last Admin: 06/28/18 09:06 Dose: 5,000 units Insulin Aspart (Novolog Insulin Correctional Sugar Inj) 0 unit SQ ACHS AND 3AM RUBEN; Protocol Last Admin: 06/28/18 08:00 Dose: Not Given Ondansetron HCl (Zofran Inj) 4 mg IV.PUSH Q6H PRN PRN Reason: NAUSEA OR VOMITING Sodium Chloride (Ns Flush) 2 ml IV.FLUSH BID RUBEN Sodium Chloride (Ns Flush) 2 ml IV.FLUSH PRN PRN PRN Reason: FLUSH AFTER USING IV ACCESS Physical Exam Vital signs: Last Vital Signs Temp 97.0 F L 06/28/18 03:34 Pulse 67 06/28/18 03:34 Resp 15 06/28/18 03:34 BP 107/79 06/28/18 03:34 Pulse Ox 98 06/28/18 08:13 Intake & Output 06/26/18 06/27/18 06/28/18 06/29/18 06:59 06:59 06:59 06:59 Intake Total 324 / 324 1000 / 1000 Balance 324 / 324 1000 / 1000 Weight 83.7 kg General: No acute distress, conversational HEENT: EOMI, PERRLA Vascular: S1/S2. No murmurs rubs or gallops noted. Respiratory: Clear to auscultation anterior and posteriorly without wheezing, rales, or rhonchi Intestinal: Soft, nontender, not distended, no guarding rebound appreciated. Skin: Tattoo on right upper extremity Extremity: No lower extremity edema or calf tenderness. 2+ dorsalis pedis pulse and radial pulse bilaterally upper extremities. Neurology: No facial droop, no slurred speech, no focal deficits on physical examination, V1, V2, V3 intact. No tongue deviation. Decreased sensation on the lateral portion of the right lower leg from prior neuropathy (baseline). Postsurgical head wound from craniotomy noted. No erythema or drainage wound site appears clean. Results Labs CBC & Chem 7: 06/27/18 19:05 06/27/18 19:05 Imaging Impressions Chest X-Ray 06/27/18 18:59 CONCLUSION: Negative examination. Head CT 06/27/18 18:59 CONCLUSION: 1. Stable appearance status post craniotomy and aneurysm clipping. 2. No acute hemorrhage or mass effect. Report was called by [ Dr Luna to Dr. Hudson at 1917 hours. ] Head CTA 06/27/18 18:59 CONCLUSION: 1. No occlusive disease identified on CTA head. Previous aneurysm clipping on the right with right craniotomy. Report was called by [ Dr. Mckeon to Dr. Valero at 7:45 PM.] Neck CTA 06/27/18 18:59 CONCLUSION: 1. Minimal plaque formation without carotid stenosis. Caprini VTE Risk Assessment Caprini VTE Risk Assessment: No/Low Risk (score <= 1) Caprini Risk Assessment Model: Point Value = 1 Point Value = 2 Point Value = 3 Point Value = 5 Age 41-60 Minor surgery BMI > 25 kg/m2 Swollen legs Varicose veins or History of unexplained or recurrent spontaneous Oral contraceptives or hormone replacement Sepsis (< 1 month) Serious lung disease, including pneumonia (< 1 month) Abnormal pulmonary function Acute myocardial infarction Congestive heart failure (< 1 month) History of inflammatory bowel disease Medical patient at bed rest Age 61-74 Arthroscopic surgery Major open surgery (> 45 min) Laparoscopic surgery (> 45 min) Malignancy Confined to bed (> 72 hours) Immobilizing plaster cast Central venous access Age >= 75 History of VTE Family history of VTE Factor V Leiden Prothrombin [id number] Lupus anticoagulant Anticardiolipin antibodies Elevated serum homocysteine Heparin-induced thrombocytopenia Other congenital or acquired thrombophilia Stroke (< 1 month) Elective arthroplasty Hip, pelvis, or leg fracture Acute spinal cord injury (< 1 month) Prophylaxis Regimen: Total Risk Factor Score Risk Level Prophylaxis Regimen 0-1 Low Early ambulation 2 Moderate Order ONE of the following: *Sequential Compression Device (SCD) *Heparin 5000 units SQ BID 3-4 Higher Order ONE of the following medications: *Heparin 5000 units SQ TID *Enoxaparin/Lovenox 40 mg SQ daily (WT < 150 kg, CrCl > 30 mL/min) *Enoxaparin/Lovenox 30 mg SQ daily (WT < 150 kg, CrCl > 10-29 mL/min) *Enoxaparin/Lovenox 30 mg SQ BID (WT < 150 kg, CrCl > 30 mL/min) AND/OR *Sequential Compression Device (SCD) 5 or more Highest Order ONE of the following medications: *Heparin 5000 units SQ TID (Preferred with Epidurals) *Enoxaparin/Lovenox 40 mg SQ daily (WT < 150 kg, CrCl > 30 mL/min) *Enoxaparin/Lovenox 30 mg SQ daily (WT < 150 kg, CrCl > 10-29 mL/min) *Enoxaparin/Lovenox 30 mg SQ BID (WT < 150 kg, CrCl > 30 mL/min) AND *Sequential Compression Device (SCD) Assessment and Plan (1) Brain aneurysm: Code(s): I67.1 - Cerebral aneurysm, nonruptured Status: Acute (2) Headache: Code(s): R51 - Headache Status: Acute (3) Blurry vision, bilateral: Code(s): H53.8 - Other visual disturbances Status: Acute (4) Word finding difficulty: Code(s): R47.89 - Other speech disturbances Status: Acute (5) History of hemorrhagic cerebrovascular accident (CVA) without residual deficits: Code(s): Z86.73 - Personal history of transient ischemic attack (TIA), and cerebral infarction without residual deficits Status: Acute Plan Neurology: History of brain aneurysm status post clipping complicated by hemorrhagic CVA, history of dropfoot Ibuprofen 600 mg as needed headache MRI brain CTA head and neck negative for occlusive disease CT head negative - Outpatient neurologist Dr. Hodges. -Physical therapy evaluation given history of right foot drop. Patient does not use any device outpatient. Patient occasionally with muscle spasm responsive to Robaxin. Explained to patient risk of falls using medication. Patient aware and has used in the past. Patient reports that he is no longer using medications to prevent vasospasm of his brain aneurysm. Patient denied being on seizure medications after craniotomy. CODE STATUS: Full code DVT prophylaxis Disposition: Research Plan discussed with patient and family at the bedside. Plan of care agreed to this time. H&P: Quality VTE Deep Vein Thrombosis/Pulmonary Embolism Present on Admission: No
--- NOTE | 2018-06-28 10:28 | MR ---
EXAM DATE: 06/28/2018 10:10 AM EST AGE/SEX: 42 years / Male INDICATIONS: Cephalgia. CLINICAL DATA: This is the patient's initial encounter. Patient reports that signs and symptoms have been present for 1 day and indicates a pain score of 0/10. MEDICAL/SURGICAL HISTORY: Aneurysm, intracranial. Hemorrhagic CVA. Craniotomy. Aneurysm clips. COMPARISON: [facility], MRI BRAIN W/O CONTRAST, 01/23/2017. [facility], CT HEAD W/O CONTRAST, 06/27/2018. . TECHNIQUE: Multiplanar, multisequence examination of the brain was performed without contrast. FINDINGS: Cerebrum: The ventricles are normal for age. No evidence of midline shift, mass lesion, hemorrhage or acute infarction. There appears to be encephalomalacia and some volume loss in the anterior aspect of the right temporal lobe at the anterior aspect of the right middle cranial fossa. There appears b e a small old lacunar infarct seen at the posterior limb of the internal capsule on the right. This w as present previously. There is an area of susceptibility artifact seen at the right suprasellar cist soren region. The patient reportedly has a MR-compatible aneurysm clip. The pituitary gland and suprase llar cistern are normal in configuration. White Matter: No significant signal abnormalities are seen in the white matter. Posterior Fossa: The cerebellum and brainstem are intact. The 4th ventricle is midline. The cerebel lopontine angle is unremarkable. The cerebellar tonsils are normal in position. Diffusion Imaging: No focal areas of restricted diffusion are seen. No evidence of acute infarction . Extracranial: The visualized portions of the orbits and paranasal sinuses are unremarkable. CONCLUSION: 1. No acute abnormality is seen. 2. MR compatible aneurysm clip in the right suprasellar cistern region. 3. 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 4. Old lacunar infarct at the right internal capsule. Electronically signed by: Ken Levy MD 06/28/2018 10:27 AM EST
--- NOTE | 2018-06-28 12:46 | ECG ---
Date Performed: 06/27/2018 Time Performed: 19:30:39 PTAGE: 42 years EKG: Sinus rhythm NORMAL ECG NO PREVIOUS TRACING DOCTOR: Andre Garcia Interpretating Date/Time 06/28/2018 12:42:23
--- NOTE | 2018-06-28 13:37 | ECHRPT ---
Indication: CVA/TIA CONCLUSIONS Normal left ventricular size. Wall thickness is normal. The left ventricular systolic function is normal with an estimated ejection fraction in the range of 55-60%. There is trace tricuspid valve regurgitation. The estimated pulmonary arterial pressure is 40 mmHg. BP: / HR: Rhythm: MEASUREMENTS (Male / Female) Normal Values Technical Quality:Fair 2D ECHO LV Diastolic Diameter PLAX 5.1 cm 4.2 - 5.9 / 3.9 - 5.3 cm LV Systolic Diameter PLAX 3.3 cm IVS Diastolic Thickness 0.9 cm 0.6 - 1.0 / 0.6 - 0.9 cm LVPW Diastolic Thickness 1.0 cm 0.6 - 1.0 / 0.6 - 0.9 cm LV Relative Wall Thickness 0.4 RV Internal Dim ED PLAX 2.7 cm LVOT Diameter 2.2 cm Aortic Root Diameter 2.5 cm LA Systolic Diameter LX 2.6 cm 3.0 - 4.0 / 2.7 - 3.8 cm DOPPLER AV Peak Velocity 119.0 cm/s AV Peak Gradient 5.7 mmHg LVOT Peak Velocity 105.0 cm/s LVOT Peak Gradient 4.4 mmHg AV Area Cont Eq pk 3.4 cm Mitral E Point Velocity 88.4 cm/s Mitral A Point Velocity 57.8 cm/s Mitral E to A Ratio 1.5 LV E' Lateral Velocity 11.5 cm/s Mitral E to LV E' Lateral Ratio 7.7 LV E' Septal Velocity 12.2 cm/s Mitral E to LV E' Septal Ratio 7.2 TR Peak Velocity 273.0 cm/s TR Peak Gradient 29.8 mmHg Right Atrial Pressure 10.0 mmHg Pulmonary Artery Systolic Pressu 39.8 mmHg Right Ventricular Systolic Press 39.8 mmHg PV Peak Velocity 99.1 cm/s PV Peak Gradient 3.9 mmHg FINDINGS LEFT VENTRICLE Normal left ventricular size. Wall thickness is normal. The left ventricular systolic function is normal with an estimated ejection fraction in the range of 55-60%. RIGHT VENTRICLE Normal right ventricular size and systolic function. LEFT ATRIUM The left atrial size is normal. RIGHT ATRIUM The right atrial size is normal. ATRIAL SEPTUM Normal atrial septal thickness without atrial level shunting by limited color doppler interrogation. AORTA The aortic root and proximal ascending aorta are normal in size on limited imaging. MITRAL VALVE Structurally normal mitral valve. No mitral valve stenosis or regurgitation. AORTIC VALVE Trileaflet aortic valve. No aortic valve stenosis or regurgitation. TRICUSPID VALVE There is trace tricuspid valve regurgitation. The estimated pulmonary arterial pressure is 40 mmHg. PULMONARY VALVE No pulmonary valve regurgitation or stenosis. VESSELS The inferior vena cava is normal in size. PERICARDIUM No pericardial effusion. Sagar Dutton MD, FACC, [facility] (Electronically Signed) Final Date:28 June 2018 13:37
--- NOTE | 2018-06-28 14:32 | MB ---
cc: Molly Calderon MD, John R DO DATE: 06/28/2018 REASON FOR CONSULTATION: He was initially brought in, I believe as a stroke alert. HISTORY OF PRESENT ILLNESS: The patient is a pleasant 42-year-old male with a history of brain aneurysm, status post aneurysm clipping, status post hemorrhagic stroke in August of last year, who comes into the ED overnight with a headache. He has headaches and migraines since the hemorrhage, but this headache did not go away with drinking coffee. It became worse to the point where he was confused, had some trouble with speech, was texting his and did not make sense. Hence, he was brought in for possible stroke alert. Had undergone testing per ED. Stable CT, CTA igiugig of [place] as well as carotids did not show anything significant. He recently had an MRI that did not show anything acute either. The aneurysm clip is in the right suprasellar cistern region. The patient seems to be back to baseline. He has never been placed on any preventative migraine medications. He did have some prescription in the past, but it was too expensive and he did not take it. There was no seizure-like event. He does not have a headache. Currently, he is back to baseline. ALLERGIES: PENICILLIN. SOCIAL HISTORY: Smoker a couple cigarettes daily. Occasional alcohol, maybe a drink a month. No illicit drugs. FAMILY HISTORY: His brother actually of an aneurysm as well as some other family member that has an aneurysm, but both parents have hypertension and diabetes. PAST SURGICAL HISTORY: Right shoulder, back and the brain aneurysm. HOME MEDICINES: 1. Vitamins. 2. Ibuprofen as needed. 3. Robaxin. 4. Zyrtec. PAST MEDICAL HISTORY: He has a dropped foot from chronic back issue as well. PHYSICAL EXAMINATION: VITAL SIGNS: Temperature 97.8, pulse 68, respiratory rate 17, blood pressure 106/74. His blood pressure initially was 155/81 but other than that first reading when he came in, the rest of his BPs were fine. NECK: Supple. HEART: Regular. LUNGS: Clear. GENERAL: He is awake, alert. He is fluent. Pupils reactive. Face symmetrical. Tongue midline. I do not see any significant weakness in his arms. He has an old right foot drop. DTRs are brisk. Toes withdrawal. Cerebellar is normal. Gait is withheld at this point. LABORATORY DATA: Reviewed. CBC is normal. Coag panel normal. Chemistries: Sodium was 146, glucose 111. LFTs were normal. GFR 74. Urine negative. Tox screen positive for opiates. As stated in the report, he had brain MRI without contrast that shows no acute abnormality. MRI compatible aneurysm clip was seen in the right suprasellar cistern region. He has encephalomalacia in the anterior right temporal lobe, also old lacune in the right internal capsule. Echocardiogram was also performed on this admission. He has an EF of 55-60%, trace tricuspid valve regurgitation, otherwise unremarkable. Neck CTA: Minimal plaque bilaterally. No stenosis. Head CTA: Again aneurysm clip but nothing acute. IMPRESSION: Severe headache, complicated migraine most likely. I would recommend, given that he has migraines, starting him on Depakote ER 500 mg at bedtime. Certainly, he can follow up with his family physician for ongoing care. Medicine can be increased if needed. Other options I did discuss were topiramate, but I am worried that it may cause more cognitive problems. Blood pressure is controlled. We will start him on the Depakote ER tonight. If he is doing well otherwise, from my perspective, he can be discharged and have followup outpatient luna. MD BERTO Hanks/kera , 01:52 PM , 02:00 PM
[2018-06-28] MEDS: Methocarbamol 500 MG Tablet PO PRN (18:43)
[2018-06-28] MEDS ORDERED: Divalproex 500 MG ER Tablet PO SCH (21:00)
[2018-06-28] MEDS: Ibuprofen 600 MG Tablet PO PRN (21:41)
[2018-06-29] MEDS: Heparin - SQ 10,000 UNITS/ML Vial SQ SCH (05:52)
[2018-06-29] MEDS: Ibuprofen 600 MG Tablet PO PRN (07:54)
[2018-06-29] MEDS: Methocarbamol 500 MG Tablet PO PRN (07:54)
[2018-06-29] MEDS: Insulin NovoLOG Aspart Correctional Sugar Inj SQ SCH ×2 (07:56→09:38)
[2018-06-29] MEDS: Aspirin 325 MG Tablet PO SCH (08:01)
[2018-06-29 08:42] VITALS: BP 107/64; TEMP 96.9; O2SAT 99
[2018-06-29 09:39] VITALS: RESP 20
[2018-06-29 09:47] VITALS: PULSE 64
[2018-06-29 11:18] LABS: Chol/HDL Ratio 4.32 Ratio; HDL Cholesterol 35.6 mg/dL (40.0-60.0)
[2018-06-29 14:13] LABS: Hemoglobin A1c 5.4 % (4.3-6.0)
--- NOTE | 2018-06-29 19:44 | P.PNIM ---
Subjective Interval history: Patient symptoms have completely resolved. Patient received Depakote overnight and tolerated medication well. Patient denies any symptoms of headache, blurry vision, loss of hearing or new weakness. Patient would like to go home Physical Exam Vital signs: Last Vital Signs Temp 96.9 F L 06/29/18 08:00 Pulse 64 06/29/18 08:00 Resp 20 06/29/18 09:38 BP 107/64 06/29/18 08:00 Pulse Ox 99 06/29/18 08:00 Intake & Output 06/27/18 06/28/18 06/29/18 06/30/18 06:59 06:59 06:59 06:59 Intake Total 324 / 324 1967 Balance 324 / 324 1967 Weight 83.7 kg general: No acute distress, conversational Cardia vascular: S1/S2 Respiratory: Clear to auscultation Gastrointestinal: Soft, nontender, nondistended. Positive bowel sounds Neurology: No facial droop, no slurred speech, no nystagmus. Sensation intact upper extremity. Reduced sensation right lower extremity lateral part of leg which is chronic from foot drop. Results Labs CBC & Chem 7: 06/27/18 19:05 06/27/18 19:05 Assessment and Plan (1) Brain aneurysm: Code(s): I67.1 - Cerebral aneurysm, nonruptured Status: Acute (2) Headache: Code(s): R51 - Headache Status: Acute (3) Blurry vision, bilateral: Code(s): H53.8 - Other visual disturbances Status: Acute (4) Word finding difficulty: Code(s): R47.89 - Other speech disturbances Status: Acute (5) History of hemorrhagic cerebrovascular accident (CVA) without residual deficits: Code(s): Z86.73 - Personal history of transient ischemic attack (TIA), and cerebral infarction without residual deficits Status: Acute Plan Neurology: History of brain aneurysm status post clipping complicated by hemorrhagic CVA, history of dropfoot Ibuprofen 600 mg as needed headache MRI brain reviewed CTA head and neck negative for occlusive disease CT head negative - Outpatient neurologist Dr. Hodges. Neurology consultation appreciated via EMR. Patient started on Depakote and tolerated well overnight no new symptoms in the morning and cleared for discharge. PT consultation appreciated. Patient instructed to wear high top shoes. Progress Note: Quality VTE Deep Vein Thrombosis/Pulmonary Embolism Present on Admission: No
== END 2018-06-29 11:40 | disposition home or self-care (01) ==
LOC: PHED 18:51 → PHEDA 18:51 → PH3 06-28 02:20
PROVIDERS: ADMIT Internal Medicine; ATTEND Internal Medicine